=== PATIENT | male | born 1960 | race Caucasian/White ===

== ENCOUNTER 2020-02-14 07:12 | Outpatient (REF) | payer OTHER, SELFPAY ==
[2020-02-14 11:30] LABS: MANUAL DIFF FLAG NO
[2020-02-14 11:40] LABS: Estimated Average Glucose 120 mg/dL; Hemoglobin A1C 151.6024 umol/L; Hemoglobin A1c % 5.8 %
[2020-02-14 11:41] LABS: Basophils Percent Auto 0.4 % (0-2); Eosinophils Absolute Auto 0.2 X10*3/uL (0.0-0.4); Eosinophils Percent Auto 3.4 % (0-4); Hematocrit 42.9 % (42-52); Hemoglobin 14.7 g/dl (14.0-18.0); Imm Gran Abs Auto 0.02 X10*3/uL (0.00-0.03); Imm Gran Pct Auto 0.4 % (0.0-0.4); Lymphocytes Absolute Auto 2.2 X10*3/uL (1.2-4.9); Lymphocytes Percent Auto 38.2 % (20-40); Mean Corpuscular HGB Conc 34.3 g/dl (31.0-36.0); Mean Corpuscular Hemoglobin 30.6 pg (27.0-33.0); Mean Corpuscular Volume 89.2 fL (80-98); Mean Platelet Volume 11.6 fL (9.4-12.4); Monocytes Absolute Auto 0.4 X10*3/uL (0.1-1.2); Monocytes Percent Auto 6.4 % (2-11); Neutrophils Absolute Auto 2.9 X10*3/uL (2.0-8.3); Neutrophils Percent Auto 51.2 % (45-73); Platelet Count 179 X10*3/uL (160-400); Red Blood Count 4.81 X10*6/uL (4.60-5.80); Red Cell Distribution Width 12.4 % (11.0-16.0); White Blood Count 5.7 X10*3/uL (4.8-10.8)
[2020-02-14 12:00] LABS: Alanine Aminotransferase 31 U/L (0-40); Albumin Level 4.1 g/dL (3.5-5.0); Alkaline Phosphatase 85 U/L (39-117); Anion Gap 12 (12-20); Aspartate Amino Transferase 16 U/L (5-37); Bilirubin Total 0.7 mg/dL (0.0-1.0); Blood Urea Nitrogen 14 mg/dL (9-16); Calcium 8.8 mg/dL (8.4-10.2); Carbon Dioxide 29 mmol/L (22-29); Chloride 104 mmol/L (96-108); Cholesterol 175 mg/dL; Estimated Glomerular Filt Rate > 60; Glucose Fasting 128 mg/dL (60-99); HDL Cholesterol 46 mg/dL; LDL Cholesterol Calculated 118 mg/dl; Potassium 4.2 mmol/l (3.3-5.1); Sodium 141 mmol/L (135-145); Total Protein 6.5 g/dL (6.5-8.0); Triglycerides 58 mg/dL
[2020-02-14 12:26] LABS: Prostate Specific Antigen Scr 4.02 ng/mL (<0.05-4.0)
== END 2020-02-14 07:13 | disposition home or self-care (01) ==
LOC: HO.HMGCLDS 07:12
PROVIDERS: PCP Internal Medicine; Visit Provider Internal Medicine
DX: E78.5 Hyperlipidemia, unspecified (principal); E11.9 Type 2 diabetes mellitus without complications
CPT/HCPCS: 36415; 80053; 80061; 83036; 84153; 85025

== ENCOUNTER → 2020-04-14 14:27 | Outpatient (BNVA) | payer OTHER, SELFPAY | PROVIDERS: PCP Internal Medicine; Visit Provider Urology | DX: Z76.89 Persons encountering health services in other specified circumstances (principal) ==

== ENCOUNTER 2020-05-04 15:32 | Outpatient (REF) | payer OTHER, SELFPAY ==
[2020-05-04 18:20] LABS: PSA,Total (Free>4and<10) 5.04 ng/mL (0.00-4.00)
[2020-05-06 11:27] LABS: Free Prostate Spec Ag 0.4 ng/mL; Percent Free Prostate Spec Ag 9 % (calc) (>25); Prostate Specific Ag Total 4.3 ng/mL (< OR = 4.0)
== END 2020-05-04 15:33 | disposition home or self-care (01) ==
LOC: HO.LAB 15:32
PROVIDERS: PCP Internal Medicine; Visit Provider Urology
DX: N40.1 Benign prostatic hyperplasia with lower urinary tract symptoms (principal); N13.8 Other obstructive and reflux uropathy; R97.20 Elevated prostate specific antigen [PSA]; Z80.42 Family history of malignant neoplasm of prostate; Z12.5 Encounter for screening for malignant neoplasm of prostate
CPT/HCPCS: 36415; 84153; 84154

== ENCOUNTER → 2020-05-06 11:08 | Outpatient (BNVA) | payer OTHER, SELFPAY | PROVIDERS: PCP Internal Medicine; Visit Provider Urology | DX: Z76.89 Persons encountering health services in other specified circumstances (principal) ==

== ENCOUNTER 2020-09-04 07:14 | Outpatient (REF) | payer OTHER, SELFPAY ==
[2020-09-04 11:42] LABS: Estimated Average Glucose 120 mg/dL; Hemoglobin A1c % 5.8 %
[2020-09-04 11:49] LABS: Cholesterol 186 mg/dL; HDL Cholesterol 48 mg/dL; LDL Cholesterol Calculated 127 mg/dl; Triglycerides 58 mg/dL
== END 2020-09-04 07:15 | disposition home or self-care (01) ==
LOC: HO.HMGCLDS 07:14
PROVIDERS: PCP Internal Medicine; Visit Provider Internal Medicine
DX: E11.9 Type 2 diabetes mellitus without complications (principal); E78.5 Hyperlipidemia, unspecified
CPT/HCPCS: 36415; 80061; 83036

== ENCOUNTER → 2020-10-29 16:12 | Outpatient (BNVA) | payer OTHER, SELFPAY | PROVIDERS: PCP Internal Medicine; Visit Provider Urology ==

== ENCOUNTER 2020-12-01 07:30 | Outpatient (REF) | payer OTHER, SELFPAY ==
[2020-12-01 07:44] VITALS: BP 143/85; PULSE 71; RESP 16; TEMP 36.3; O2SAT 99
[2020-12-01 07:48] VITALS: BMI 31.5
--- NOTE | 2020-12-01 08:33 | W.PM.OPN ---
Operative Note Operative Note Date of Service: 12/01/20 Narrative: Preoperative diagnosis: Elevated PSA Postoperative diagnosis: Elevated PSA Procedure: 1. transrectal ultrasound measurement of prostate 2. transrectal ultrasound-guided pudendal nerve block 3. transrectal ultrasound-guided prostate biopsy 12 core Surgeon: Dr. Dawood Rashid Anesthetic: Local Indications for procedure: Elevated PSA 5.0 free 9% Procedure: After informed consent was verified, the patient was brought into the procedure area and lay left-hand side down on the table. Patient identity confirmed. Perioperative antibiotics confirmed. Gel was placed per rectum Ultrasound probe was placed per rectum The prostate was measured in 3 dimensions Total volume equals 35 gm There were no cystic structures and no calcifications noted. slight area of hypoechoic 1cm at left base A ultrasound-guided pudendal nerve block was performed using 10 cc of 1% lidocaine. 8 cc was placed at the base and 2 cc of the apex. A 12 core biopsy was performed with 6 cores each side. Two cores were taken at the apex, mid and base. Cores were spaced between lateral and medial. He tolerated the procedure well. Was able to ambulate to bathroom after 5 minutes. Printed instructions regarding antibiotic use and common side effects such as low-grade temperature and bleeding were given.
[2020-12-01 08:35] VITALS: BP 133/88; PULSE 70; RESP 16; O2SAT 97
== END 2020-12-01 07:31 | disposition home or self-care (01) ==
LOC: HO.MS 07:30
PROVIDERS: PCP Internal Medicine; Visit Provider Urology
PROC: (CPT 55700; principal; 2020-12-01 08:00)
DX: C61 Malignant neoplasm of prostate (principal); R97.20 Elevated prostate specific antigen [PSA]; Z80.42 Family history of malignant neoplasm of prostate
CPT/HCPCS: 55700; 76942; 88305

== ENCOUNTER → 2020-12-09 14:46 | Outpatient (BNVA) | payer OTHER, SELFPAY | PROVIDERS: PCP Internal Medicine; Visit Provider Urology ==

== ENCOUNTER → 2021-01-13 10:50 | Outpatient (REF) | payer OTHER, SELFPAY ==
--- NOTE | ~2021-01-13 | NM_ITS ---
EXAMINATION: NM BONE SCAN OF THE WHOLE BODY CLINICAL INFORMATION: Malignant neoplasm of prostate. COMPARISON: None. TECHNIQUE: Multiple gamma scintillation camera images of the whole body were performed 2.5 hours following the intravenous administration of 34 mCi Tc-99m MDP. FINDINGS: In the head, no abnormal activity seen. In the thoracic cage and upper extremities, there is mild focal activity seen in bilateral sternoclavicular joints. Otherwise, no abnormal activity seen in the thoracic cage or upper extremities. In the spine, there is punctate activity at the right T8 costovertebral junction, likely degenerative changes. Otherwise, no abnormal metabolic activity seen on whole body. In the pelvis, no abnormal activity seen. In the lower extremities, there is mild increased activity seen in the tarsometatarsal joints of both feet, likely arthritic changes. Also visualized is mild increased activity in the medial compartments of both knees and the patella. No other definite bony abnormalities are noted. The urinary bladder and faint visualization of both kidneys are noted. NM/NM bone scan whole body IMPRESSION: No abnormal activity seen to suspect any metastatic disease. Mild arthritic changes bilateral sternoclavicular joints, right 8th costovertebral junction and bilateral midfoot.
== END ==
LOC: HO.NUCMED 10:50
PROVIDERS: PCP Internal Medicine; Visit Provider Urology
DX: C61 Malignant neoplasm of prostate (principal)
CPT/HCPCS: 78306; A9503

== ENCOUNTER → 2021-01-26 14:57 | Outpatient (BNVA) | payer OTHER, SELFPAY | PROVIDERS: PCP Internal Medicine; Visit Provider Urology ==

== ENCOUNTER 2021-02-24 07:22 | Outpatient (REF) | payer OTHER, SELFPAY ==
[2021-02-24 11:27] LABS: MANUAL DIFF FLAG NO
[2021-02-24 11:40] LABS: Basophils Percent Auto 0.4 % (0-2); Eosinophils Absolute Auto 0.1 X10*3/uL (0.0-0.4); Eosinophils Percent Auto 2.8 % (0-4); Hematocrit 43.7 % (42.0-52.0); Imm Gran Abs Auto 0.01 X10*3/uL (0.00-0.03); Imm Gran Pct Auto 0.2 % (0.0-0.4); Lymphocytes Absolute Auto 1.6 X10*3/uL (1.2-4.9); Lymphocytes Percent Auto 30.5 % (20-40); Mean Corpuscular HGB Conc 34.3 g/dl (31.0-36.0); Mean Corpuscular Hemoglobin 30.9 pg (27.0-33.0); Mean Corpuscular Volume 89.9 fL (80.0-98.0); Mean Platelet Volume 12.1 fL (9.4-12.4); Monocytes Absolute Auto 0.3 X10*3/uL (0.1-1.2); Monocytes Percent Auto 6.5 % (2-11); Neutrophils Absolute Auto 3.03 x10*3/uL (2.0-8.3); Neutrophils Percent Auto 59.6 % (45-73); Platelet Count 175 X10*3/uL (160-400); Red Blood Count 4.86 X10*6/uL (4.60-5.80); Red Cell Distribution Width 12.4 % (11.0-16.0); White Blood Count 5.1 X10*3/uL (4.8-10.8)
[2021-02-24 12:20] LABS: Alanine Aminotransferase 29 U/L (0-40); Albumin Level 4.2 g/dL (3.5-5.0); Alkaline Phosphatase 98 U/L (39-117); Anion Gap 9 (12-20); Aspartate Amino Transferase 18 U/L (5-37); Bilirubin Total 0.7 mg/dL (0.0-1.0); Blood Urea Nitrogen 16 mg/dL (9-16); Calcium 9.3 mg/dL (8.4-10.2); Carbon Dioxide 29 mmol/L (22-29); Chloride 105 mmol/L (96-108); Cholesterol 134 mg/dL; Estimated Glomerular Filt Rate > 60; Glucose Fasting 148 mg/dL (60-99); HDL Cholesterol 48 mg/dL; LDL Cholesterol Calculated 79 mg/dl; Potassium 4.3 mmol/L (3.3-5.1); Sodium 139 mmol/L (135-145); Total Protein 6.3 g/dL (6.5-8.0); Triglycerides 36 mg/dL
[2021-02-25 13:06] LABS: Estimated Average Glucose 117 mg/dL; Hemoglobin A1c % 5.7 %
== END 2021-02-24 07:23 | disposition home or self-care (01) ==
LOC: HO.HMGCLDS 07:22
PROVIDERS: PCP Internal Medicine; Visit Provider Internal Medicine
DX: E11.9 Type 2 diabetes mellitus without complications (principal); R53.83 Other fatigue; E78.5 Hyperlipidemia, unspecified
CPT/HCPCS: 36415; 80053; 80061; 83036; 85025

== ENCOUNTER → 2021-03-10 14:31 | Outpatient (BNVA) | payer OTHER, SELFPAY | PROVIDERS: Visit Provider Urology | DX: C61 Malignant neoplasm of prostate (principal) | CPT/HCPCS: 96402; J9217 ==

== ENCOUNTER 2021-04-06 11:33 | Outpatient (REF) | payer OTHER, SELFPAY ==
[2021-04-06 11:50] VITALS: BP 144/95; PULSE 73; RESP 16; TEMP 36.6; O2SAT 100
[2021-04-06 11:51] VITALS: BMI 29.2
--- NOTE | 2021-04-06 12:22 | W.PM.OPN ---
Operative Note Operative Note Date of Service: 04/06/21 Narrative: Preoperative diagnosis: Prostate cancer Postoperative diagnosis: Prostate cancer Procedure: 1. Transrectal ultrasound-guided pudendal nerve block 2. Transrectal ultrasound-guided gold seed placement Surgeon: Dr. Dawood Rashid Anesthetic: Local Indications for procedure: Prostate Cancer Procedure: After informed consent was verified, the patient was brought into the procedure area and lay left-hand side down on the table. Patient identity confirmed. Perioperative antibiotics confirmed. Gel was placed per rectum Ultrasound probe was placed per rectum A ultrasound-guided pudendal nerve block was performed using 10 cc of 1% lidocaine. 8 cc was placed at the base and 2 cc of the apex. 3 gold seed markers placed. 2 on the right, 1 on the left. The purpose is for triangulation. He tolerated the procedure well. Was able to ambulate to bathroom after 5 minutes. Printed instructions regarding antibiotic use and common side effects such as low-grade temperature and bleeding were given
== END 2021-04-06 11:34 | disposition home or self-care (01) ==
LOC: HO.MS 11:33
PROVIDERS: PCP Internal Medicine; Visit Provider Urology
PROC: (CPT 55876; principal; 2021-04-06 12:00)
DX: C61 Malignant neoplasm of prostate (principal)
CPT/HCPCS: 55876; 76942; A4648

== ENCOUNTER 2021-07-13 15:37 | Outpatient (AMB) | payer OTHER, SELFPAY ==
--- NOTE | 2021-07-13 15:40 | MHC.OFFVIS ---
Intake Intake Visit Reasons: 3 Month follow up (Gold seed) Intake Note: patient is present for follow up Roll Reclaimer Required: No Accompanied by: Self / Same As Patient Allergies No Known Allergies Allergy (Verified 06/28/23 12:51) HPI HPI Comments History of Present Illness Details Jason is a pleasant male. He is a patient of Dr. Salazar. Seen for the following urologic condition - elevated PSA - family history prostate cancer Done well through radiation therapy Had urgency and frequency both urinary and erectile This is now on settling down having completed his radiation newly this month Very happy with okay service through [facility] Three month follow-up lab work Prostate cancer - intermediate risk with single core unfavorable, predominant biopsies [place] 3 + 24 November 2020 - initial therapy 6 month GnRH with IMRT 7 100 Gy [facility] Dr. Prieto 07/13 Prior PSA 4.0, 05/14 5.0 Histologic type:? Prostatic acinar adenocarcinoma Histologic grade: ? Esther score:? 3 + 3 = 6 (Parts A, B, C, F, G, H, and I), 3 + 4 = 7 (Part D), and 4 + 3 = 7 (Part E) ? % of pattern 4:? 20% (Part D); 60% (Part E) Tumor quantitation: ? Number cores positive:? 9, Total number of cores:? 12 ? % of tissue involved:? 50% (Parts A and B), 20% (Part C), 10% (Part D), 60% (Part E), 5% (Part F), 70% (Part G), 40% (Part H), 60%, discontinuously (Part I) - Total - 365/1200 Periprostatic fat inv.:? Not identified, Seminal vesicle inv.:? Not identified, Perineural inv.:? Present, LVI:? Not identified? Staging - 01/12 bone scan [facility], arthritis - 01/12 prostate MRI [facility] calculated volume 20 cc, no extension through the prostate capsule, signal changes bilateral mid to basal aspect of prostate. [facility] Medical History Prostate cancer Family history of prostate cancer Elevated PSA Review of Systems Const Denies chills and Denies fever(s) Card Reports no additional complaints and Denies syncope Resp Denies cough GI Denies abdominal pain and Denies heartburn Reports as per HPI and Denies change in libido Neuro Denies syncope Psych Denies change in libido Endo Denies change in libido Physical Exam Const General: cooperative, healthy appearing, comfortable and no acute distress Orientation/consciousness: patient oriented x3 HEENT Face and sinus: Yes normal facial exam Mouth: moist mucous membranes Neck Neck: Yes normal visual inspection, Yes full ROM and Yes trachea midline Chest Chest palpation & inspection: normal inspection of the chest Resp Effort & Inspection: normal respiratory effort, able to speak in complete sentences and no respiratory distress GI Inspection: Yes normal to inspection Back/Spine/Pelvis Cervical Spine: normal cervical lordosis Thoracic/Lumbar Spine: thoracic and lumbar spine normal to inspection Skin General skin exam: no rashes or lesions noted Neuro General: patient oriented x3, gait normal, tone normal and moves all extremities Extrem General: Yes normal to inspection and Yes capillary refill normal Assessment & Plan Assessment & Plan (1) Prostate cancer: Comment: Grade group 2 01/12 EXBRT with 6m GnRH 07/13 Code(s): C61 - Malignant neoplasm of prostate Plan Three-month follow-up Orders: Orders Testosterone, Total 3 Months C61 - Malignant neoplasm of prostate Prostate Specific Antigen 3 Months C61 - Malignant neoplasm of prostate Patient Instructions: Imaging studies, laboratory and physical exam results were discussed and reviewed in detail. No major barriers to patient understanding were identified. An opportunity to ask questions regarding the treatment plan was provided. All questions were answered. The patient expressed understanding and agreement with the above treatment plan. The patient is aware they should contact our office by phone for worsening of their current condition or the appearance of new urologic symptoms. Compliance is encouraged with any medications and followup testing that is ordered. It is a privilege to participate in the urologic care of your patient. If you have any questions or concerns regarding treatment for the above conditions, or other urologic issues, please do not hesitate to contact me. The office telephone contact is [phone]. This note is constructed using voice recognition software. While every effort has been made to ensure accuracy digital content coordinator errors may have been included. Yours sincerely, Dr Dawood Rashid MD, [facility] - Urology Providers of Expert, Compassionate Care for the Genitourinary System Coding Level of Care Code Est Pt Level 3 (00803) Diagnoses Prostate cancer C61
== END 2021-07-13 16:05 | disposition home or self-care (01) ==
LOC: HO.HUSH 15:37
PROVIDERS: PCP Internal Medicine; Visit Provider Urology
DX: C61 Malignant neoplasm of prostate (principal)
CPT/HCPCS: 99499

== ENCOUNTER → 2021-07-13 15:37 | Outpatient (BNVA) | payer OTHER, SELFPAY | PROVIDERS: PCP Internal Medicine; Visit Provider Urology | DX: C61 Malignant neoplasm of prostate (principal) | CPT/HCPCS: 99212 ==

== ENCOUNTER 2021-10-15 07:08 | Outpatient (REF) | payer OTHER, SELFPAY ==
[2021-10-15 12:03] LABS: Prostate Specific Antigen 0.06 ng/mL (<0.05-4.0)
[2021-10-20 12:07] LABS: Testosterone, Total 121 ng/dL (250-1100)
== END 2021-10-15 07:09 | disposition home or self-care (01) ==
LOC: HO.HMGCLDS 07:08
PROVIDERS: Visit Provider Urology
DX: Z12.5 Encounter for screening for malignant neoplasm of prostate (principal); C61 Malignant neoplasm of prostate
CPT/HCPCS: 36415; 84153; 84403

== ENCOUNTER 2021-10-22 15:39 | Outpatient (AMB) | payer OTHER, SELFPAY ==
--- NOTE | 2021-10-22 15:37 | A.OFFVIS_ITS ---
Intake Intake Visit Reasons: 3 month follow up labs (SET) Intake Note: Patient is present for labs follow up [employer] Required: No Accompanied by: Self / Same As Patient Allergies No Known Allergies Allergy (Verified 03/01/23 12:42) HPI HPI Comments History of Present Illness Details Jason is a pleasant male. He is a patient of Dr. Salazar. Seen for the following urologic condition - elevated PSA - family history prostate cancer Follow-up Testosterone is slowly recovering PSA is low PSA 10/13 <0.1 T 121 Prostate cancer - intermediate risk with single core unfavorable, predominant biopsies Esther 3 + 24 November 2020 - initial therapy 6 month GnRH with IMRT 7 100 Gy [facility] Dr. Prieto 07/13 Prior PSA 4.0, 05/14 5.0 Histologic type:? Prostatic acinar adenocarcinoma Histologic grade: ? [place] score:? 3 + 3 = 6 (Parts A, B, C, F, G, H, and I), 3 + 4 = 7 (Part D), and 4 + 3 = 7 (Part E) ? % of pattern 4:? 20% (Part D); 60% (Part E) Tumor quantitation: ? Number cores positive:? 9, Total number of cores:? 12 ? % of tissue involved:? 50% (Parts A and B), 20% (Part C), 10% (Part D), 60% (Part E), 5% (Part F), 70% (Part G), 40% (Part H), 60%, discontinuously (Part I) - Total - 365/1200 Periprostatic fat inv.:? Not identified, Seminal vesicle inv.:? Not identified, Perineural inv.:? Present, LVI:? Not identified? Staging - 01/12 bone scan [facility], arthritis - 01/12 prostate MRI [facility] calculated volume 20 cc, no extension through the prostate capsule, signal changes bilateral mid to basal aspect of prostate. [facility] Medical History Prostate cancer Family history of prostate cancer Elevated PSA Review of Systems Const Denies chills and Denies fever(s) Card Reports no additional complaints and Denies syncope Resp Denies cough GI Denies abdominal pain and Denies heartburn Reports as per HPI and Denies change in libido Neuro Denies syncope Psych Denies change in libido Endo Denies change in libido Physical Exam Const General: cooperative, healthy appearing, comfortable and no acute distress Orientation/consciousness: patient oriented x3 HEENT Face and sinus: Yes normal facial exam Mouth: moist mucous membranes Neck Neck: Yes normal visual inspection, Yes full ROM and Yes trachea midline Chest Chest palpation & inspection: normal inspection of the chest Resp Effort & Inspection: normal respiratory effort, able to speak in complete sentences and no respiratory distress GI Inspection: Yes normal to inspection Back/Spine/Pelvis Cervical Spine: normal cervical lordosis Thoracic/Lumbar Spine: thoracic and lumbar spine normal to inspection Skin General skin exam: no rashes or lesions noted Neuro General: patient oriented x3, gait normal, tone normal and moves all extremities Extrem General: Yes normal to inspection and Yes capillary refill normal Assessment & Plan Assessment & Plan (1) Prostate cancer: Comment: Grade group 2 01/12 EXBRT with 6m GnRH 07/13 Code(s): C61 - Malignant neoplasm of prostate Plan 4m f/u Orders: Orders Prostate Specific Antigen 4 Months C61 - Malignant neoplasm of prostate Testosterone, Total 4 Months C61 - Malignant neoplasm of prostate Patient Instructions: Imaging studies, laboratory and physical exam results were discussed and reviewed in detail. No major barriers to patient understanding were identified. An opportunity to ask questions regarding the treatment plan was provided. All questions were answered. The patient expressed understanding and agreement with the above treatment plan. The patient is aware they should contact our office by phone for worsening of their current condition or the appearance of new urologic symptoms. Compliance is encouraged with any medications and followup testing that is ordered. It is a privilege to participate in the urologic care of your patient. If you have any questions or concerns regarding treatment for the above conditions, or other urologic issues, please do not hesitate to contact me. The office telephone contact is [phone]. This note is constructed using voice recognition software. While every effort has been made to ensure accuracy senior brand manager errors may have been included. Yours sincerely, Dr Dawood Rashid MD, [facility] - Urology Providers of Expert, Compassionate Care for the Genitourinary System Coding Level of Care Code Est Pt Level 3 (95976) Diagnoses Prostate cancer C61
== END 2021-10-22 16:09 | disposition home or self-care (01) ==
LOC: HO.HUSH 15:39
PROVIDERS: PCP Internal Medicine; Visit Provider Urology
DX: C61 Malignant neoplasm of prostate (principal)
CPT/HCPCS: 99499

== ENCOUNTER 2022-02-16 07:45 | Outpatient (REF) | payer OTHER, SELFPAY ==
[2022-02-16 11:27] LABS: MANUAL DIFF FLAG NO
[2022-02-16 12:04] LABS: Prostate Specific Antigen 0.08 ng/mL (<0.05-4.0)
[2022-02-16 12:05] LABS: Basophils Percent Auto 0.2 % (0-2); Eosinophils Absolute Auto 0.1 X10*3/uL (0.0-0.4); Eosinophils Percent Auto 1.4 % (0-4); Hematocrit 41.9 % (42.0-52.0); Hemoglobin 14.7 g/dl (14.0-18.0); Imm Gran Abs Auto 0.01 X10*3/uL (0.00-0.03); Imm Gran Pct Auto 0.2 % (0.0-0.4); Lymphocytes Percent Auto 23.9 % (20-40); Mean Corpuscular HGB Conc 35.1 g/dl (31.0-36.0); Mean Corpuscular Hemoglobin 31.7 pg (27.0-33.0); Mean Corpuscular Volume 90.3 fL (80.0-98.0); Mean Platelet Volume 11.4 fL (9.4-12.4); Monocytes Absolute Auto 0.3 X10*3/uL (0.1-1.2); Monocytes Percent Auto 6.4 % (2-11); Neutrophils Percent Auto 67.9 % (45-73); Platelet Count 178 X10*3/uL (160-400); Red Blood Count 4.64 X10*6/uL (4.60-5.80); Red Cell Distribution Width 12.3 % (11.0-16.0); White Blood Count 4.4 X10*3/uL (4.8-10.8)
[2022-02-16 12:07] LABS: Alanine Aminotransferase 23 U/L (0-40); Albumin Level 4.1 g/dL (3.5-5.0); Alkaline Phosphatase 91 U/L (39-117); Anion Gap 12 (12-20); Aspartate Amino Transferase 17 U/L (5-37); Bilirubin Direct 0.3 mg/dL (0.0-0.5); Bilirubin Total 0.6 mg/dL (0.0-1.0); Blood Urea Nitrogen 12 mg/dL (9-16); Carbon Dioxide 27 mmol/L (22-29); Chloride 104 mmol/L (96-108); Cholesterol 130 mg/dL; Estimated Glomerular Filt Rate > 60; Glucose Fasting 141 mg/dL (60-99); HDL Cholesterol 47 mg/dL; LDL Cholesterol Calculated 76 mg/dl; Potassium 4.4 mmol/L (3.3-5.1); Sodium 139 mmol/L (135-145); Total Protein 6.3 g/dL (6.5-8.0); Triglycerides 37 mg/dL
[2022-02-21 11:27] LABS: Testosterone, Total 360 ng/dL (250-1100)
== END 2022-02-16 07:46 | disposition home or self-care (01) ==
LOC: HO.HMGCLDS 07:45
PROVIDERS: Absent Provider Urology; PCP Internal Medicine; Visit Provider Internal Medicine
DX: Z00.00 Encounter for general adult medical examination without abnormal findings (principal); Z12.5 Encounter for screening for malignant neoplasm of prostate; C61 Malignant neoplasm of prostate; R53.83 Other fatigue; E78.5 Hyperlipidemia, unspecified
CPT/HCPCS: 36415; 80051; 80061; 80076; 82565; 82947; 84153; 84403; 84520; 85025

== ENCOUNTER 2022-06-15 07:47 | Outpatient (REF) | payer OTHER, SELFPAY ==
[2022-06-15 12:13] LABS: Prostate Specific Antigen < 0.10 ng/mL (<0.05-4.0)
[2022-06-21 13:32] LABS: Testosterone, Total 359 ng/dL (250-1100)
== END 2022-06-15 07:48 | disposition home or self-care (01) ==
LOC: HO.HMGCLDS 07:47
PROVIDERS: PCP Internal Medicine; Visit Provider Urology
DX: Z12.5 Encounter for screening for malignant neoplasm of prostate (principal); C61 Malignant neoplasm of prostate
CPT/HCPCS: 36415; 84153; 84403

== ENCOUNTER → 2022-06-30 13:22 | Outpatient (BNVA) | payer OTHER, SELFPAY | PROVIDERS: PCP Internal Medicine; Visit Provider Urology | DX: Z13.89 Encounter for screening for other disorder (principal) ==

== ENCOUNTER 2022-09-07 09:53 | Outpatient (REF) | payer OTHER, SELFPAY ==
[2022-09-07 12:17] LABS: Estimated Average Glucose 111 mg/dL; Hemoglobin A1C 150.5976 umol/L; Hemoglobin A1c % 5.5 %
== END 2022-09-07 09:54 | disposition home or self-care (01) ==
LOC: HO.HMGCLDS 09:53
PROVIDERS: PCP Internal Medicine; Visit Provider Internal Medicine
DX: E11.9 Type 2 diabetes mellitus without complications (principal); R53.83 Other fatigue
CPT/HCPCS: 36415; 83036

== ENCOUNTER 2022-10-27 06:43 | Outpatient (REF) | payer OTHER, SELFPAY | END 2022-10-27 06:44 | disposition home or self-care (01) | LOC: HO.HMGCLDS 06:43 | PROVIDERS: PCP Internal Medicine; Visit Provider Urology | DX: C61 Malignant neoplasm of prostate (principal); Z12.5 Encounter for screening for malignant neoplasm of prostate | CPT/HCPCS: 36415; 84153 ==

== ENCOUNTER 2022-11-02 13:35 | Outpatient (AMB) | payer OTHER, SELFPAY ==
--- NOTE | 2022-11-02 13:35 | MHC.OFFVIS ---
Intake Intake Visit Reasons: 4m/PSA(set) Humidifier Attendant Required: No Allergies No Known Allergies Allergy (Verified 11/02/22 13:36) Medication List - Last Reconciled 11/02/22 by Dawood Rashid MD atorvastatin 10 mg PO DAILY lorazepam 1 mg PO TID PRN HPI HPI Comments History of Present Illness Details Jason is a pleasant male. He is a patient of Dr. Salazar. Seen for the following urologic condition - elevated PSA - family history prostate cancer Telemedicine evaluation 15 minute consultation Doximity mini Video attempted PSA remains low Four month follow-up lab work Nocturia x2 PSA 10/13 <0.1 T 121, 02/12 0.08 360, 06/16 <0.1 T 360, 11/13 <0.1 Prostate cancer - intermediate risk with single core unfavorable, predominant biopsies Esther 3 + 24 November 2020 - initial therapy 6 month GnRH with IMRT [address] [facility] [address] Prieto 07/13 Prior PSA 4.0, 05/14 5.0 Histologic type:? Prostatic acinar adenocarcinoma Histologic grade: ? Esther score:? 3 + 3 = 6 (Parts A, B, C, F, G, H, and I), 3 + 4 = 7 (Part D), and 4 + 3 = 7 (Part E) ? % of pattern 4:? 20% (Part D); 60% (Part E) Tumor quantitation: ? Number cores positive:? 9, Total number of cores:? 12 ? % of tissue involved:? 50% (Parts A and B), 20% (Part C), 10% (Part D), 60% (Part E), 5% (Part F), 70% (Part G), 40% (Part H), 60%, discontinuously (Part I) - Total - 365/1200 Periprostatic fat inv.:?Not identified, Seminal vesicle inv.:? Not identified, Perineural inv.:? Present, LVI:? Not identified? Staging - 01/12 bone scan [facility], arthritis - 01/12 prostate MRI [facility] calculated volume 20 cc, no extension through the prostate capsule, signal changes bilateral mid to basal aspect of prostate. [facility] Medical History Elevated PSA Family history of prostate cancer Prostate cancer Review of Systems Const All systems reviewed & are unremarkable except as noted in HPI and below Reports no additional complaints Resp Reports no additional complaints GI Reports no additional complaints Reports as per HPI Musc Reports no additional complaints Physical Exam Telemedicine evaluation Appropriate responses Regular breathing rate and rhythm HEENT Head: Yes normal to inspection Ears: hearing grossly normal bilaterally Eyes General: appearance normal, both eyes and all related structures Neck Neck: Yes normal visual inspection Chest Chest palpation & inspection: normal inspection of the chest Resp Effort & Inspection: normal respiratory effort and able to speak in complete sentences Assessment & Plan Assessment & Plan (1) Prostate cancer: Comment: Grade group 2 01/12 EXBRT with 6m GnRH 07/13 Code(s): C61 - Malignant neoplasm of prostate Plan Four month follow-up PSA Orders: Orders Prostate Specific Antigen 4 Months C61 - Malignant neoplasm of prostate Patient Instructions: Imaging studies, laboratory and physical exam results were discussed and reviewed in detail. No major barriers to patient understanding were identified. An opportunity to ask questions regarding the treatment plan was provided. All questions were answered. The patient expressed understanding and agreement with the above treatment plan. The patient is aware they should contact our office by phone for worsening of their current condition or the appearance of new urologic symptoms. Compliance is encouraged with any medications and followup testing that is ordered. It is a privilege to participate in the urologic care of your patient. If you have any questions or concerns regarding treatment for the above conditions, or other urologic issues, please do not hesitate to contact me. The office telephone contact is [phone]. This note is constructed using voice recognition software. While every effort has been made to ensure accuracy community service technician errors may have been included. Yours sincerely, Dr Dawood Rashid MD, [facility] - Urology Providers of Expert, Compassionate Care for the Genitourinary System Telehealth Telehealth Location of provider rendering services: practice address Location of patient: address on file Patient Identification confirmed using: Name, : Yes Telehealth method: video Patient verbally consented to treatment: Yes Patient verbally consented to billing insurance company: Yes Patient informed of any privacy concerns related to visit: Yes Coding Level of Care Code Tele Est Pt Level 3 (96578) Diagnoses Prostate cancer C61
== END 2022-11-02 16:44 ==
LOC: HO.HUSH 13:35
PROVIDERS: PCP Internal Medicine; Visit Provider Urology
DX: C61 Malignant neoplasm of prostate (principal); R35.1 Nocturia
CPT/HCPCS: 99213

== ENCOUNTER → 2022-11-02 13:35 | Outpatient (BNVA) | payer OTHER, SELFPAY | PROVIDERS: PCP Internal Medicine; Visit Provider Urology ==

== ENCOUNTER 2023-02-24 06:39 | Outpatient (REF) | payer OTHER, SELFPAY | END 2023-02-24 06:40 | disposition home or self-care (01) | LOC: HO.HMGCLDS 06:39 | PROVIDERS: PCP Internal Medicine; Visit Provider Urology | DX: Z12.5 Encounter for screening for malignant neoplasm of prostate (principal); C61 Malignant neoplasm of prostate | CPT/HCPCS: 36415; 84153 ==

== ENCOUNTER 2023-03-01 12:41 | Outpatient (AMB) | payer OTHER, SELFPAY ==
--- NOTE | 2023-03-01 12:41 | A.OFFVIS_ITS ---
Intake Intake Visit Reasons: 4m/PSA(set) Intake Note: Patient is Present for Telephone Follow Up Urology Med: None Antibiotic Allergy: None Blood Thinner: None Allergies No Known Allergies Allergy (Verified 03/01/23 12:42) Medication List - Last Reconciled 03/01/23 by Dawood Rashid MD atorvastatin 10 mg PO DAILY lorazepam 1 mg PO TID PRN HPI HPI Comments History of Present Illness Details Jason is a pleasant male. He is a patient of Dr. Salazar. Seen for the following urologic condition - elevated PSA - family history prostate cancer Telemedicine evaluation 15 minute consultation [employer] mini Video attempted PSA remains low Minimal urgency or frequency Four month follow-up lab work Discussed [place] criteria for failure Nocturia x2 PSA 10/13 <0.1 T 121, 02/12 0.08 360, 06/16 <0.1 T 360, 11/13 <0.1, 03/16 0.1 Prostate cancer - intermediate risk with single core unfavorable, predominant biopsies Esther 3 + 24 November 2020 - initial therapy 6 month GnRH with IMRT 7 [address] [facility] [address] Prieto 07/13 Prior PSA 4.0, 05/14 5.0 Histologic type:? Prostatic acinar adenocarcinoma [place] score:? 3 + 3 = 6 (Parts A, B, C, F, G, H, and I), 3 + 4 = 7 (Part D), and 4 + 3 = 7 (Part E) - % of pattern 4:? 20% (Part D); 60% (Part E) Number cores positive:? 9, Total number of cores:? 12 % of tissue involved:? 50% (Parts A and B), 20% (Part C), 10% (Part D), 60% (Part E), 5% (Part F), 70% (Part G), 40% (Part H), 60%, discontinuously (Part I) - Total - 365/1200 Periprostatic fat inv.:?Not identified, Seminal vesicle inv.:? Not identified, Perineural inv.:? Present, LVI:? Not identified? Staging - 01/12 bone scan [facility], arthritis - 01/[address] [facility] calculated volume 20 cc, no extension through the prostate capsule, signal changes bilateral mid to basal aspect of prostate. [facility] Medical History Prostate cancer Family history of prostate cancer Elevated PSA Review of Systems Const All systems reviewed & are unremarkable except as noted in HPI and below Reports no additional complaints Resp Reports no additional complaints GI Reports no additional complaints Reports as per HPI Musc Reports no additional complaints Physical Exam Telemedicine evaluation Appropriate responses Regular breathing rate and rhythm HEENT Head: Yes normal to inspection Ears: hearing grossly normal bilaterally Eyes General: appearance normal, both eyes and all related structures Neck Neck: Yes normal visual inspection Chest Chest palpation & inspection: normal inspection of the chest Resp Effort & Inspection: normal respiratory effort and able to speak in complete sentences Assessment & Plan Assessment & Plan (1) Prostate cancer: Comment: Grade group 2 01/12 EXBRT with 6m GnRH 07/13 Code(s): C61 - Malignant neoplasm of prostate Plan Four month follow-up PSA Orders: Orders Prostate Specific Antigen 4 Months C61 - Malignant neoplasm of prostate Patient Instructions: Imaging studies, laboratory and physical exam results were discussed and reviewed in detail. No major barriers to patient understanding were identified. An opportunity to ask questions regarding the treatment plan was provided. All questions were answered. The patient expressed understanding and agreement with the above treatment plan. The patient is aware they should contact our office by phone for worsening of their current condition or the appearance of new urologic symptoms. Compliance is encouraged with any medications and followup testing that is ordered. It is a privilege to participate in the urologic care of your patient. If you have any questions or concerns regarding treatment for the above conditions, or other urologic issues, please do not hesitate to contact me. The office telephone contact is [phone]. This note is constructed using voice recognition software. While every effort has been made to ensure accuracy medical transcription editor errors may have been included. Yours sincerely, Dr Dawood Rashid MD, [facility] - Urology Providers of Expert, Compassionate Care for the Genitourinary System Telehealth Telehealth Location of provider rendering services: practice address Location of patient: address on file Patient Identification confirmed using: Name, : Yes Telehealth method: video Patient verbally consented to treatment: Yes Patient verbally consented to billing insurance company: Yes Patient informed of any privacy concerns related to visit: Yes Coding Level of Care Code Tele Est Pt Level 3 (22993) Diagnoses Prostate cancer C61
== END 2023-03-01 14:09 | disposition home or self-care (01) ==
LOC: HO.HUSH 12:41
PROVIDERS: PCP Internal Medicine; Visit Provider Urology
DX: C61 Malignant neoplasm of prostate (principal)
CPT/HCPCS: 99213

== ENCOUNTER → 2023-03-01 12:41 | Outpatient (BNVA) | payer OTHER, SELFPAY | PROVIDERS: PCP Internal Medicine; Visit Provider Urology ==

== ENCOUNTER 2023-03-10 06:27 | Outpatient (REF) | payer OTHER, SELFPAY ==
[2023-03-10 11:28] LABS: MANUAL DIFF FLAG NO
[2023-03-10 11:43] LABS: Basophils Percent Auto 0.5 % (0-2); Eosinophils Absolute Auto 0.3 X10*3/uL (0.0-0.4); Eosinophils Percent Auto 5.9 % (0-4); Hematocrit 42.5 % (42.0-52.0); Hemoglobin 14.7 g/dl (14.0-18.0); Imm Gran Abs Auto 0.01 X10*3/uL (0.00-0.03); Imm Gran Pct Auto 0.2 % (0.0-0.4); Lymphocytes Absolute Auto 1.4 X10*3/uL (1.2-4.9); Lymphocytes Percent Auto 33.5 % (20-40); Mean Corpuscular HGB Conc 34.6 g/dl (31.0-36.0); Mean Corpuscular Hemoglobin 32.1 pg (27.0-33.0); Mean Corpuscular Volume 92.8 fL (80.0-98.0); Mean Platelet Volume 11.1 fL (9.4-12.4); Monocytes Absolute Auto 0.3 X10*3/uL (0.1-1.2); Monocytes Percent Auto 7.6 % (2-11); Neutrophils Absolute Auto 2.2 x10*3/uL (2.0-8.3); Neutrophils Percent Auto 52.3 % (45-73); Platelet Count 182 X10*3/uL (160-400); Red Blood Count 4.58 X10*6/uL (4.60-5.80); Red Cell Distribution Width 12.9 % (11.0-16.0); White Blood Count 4.2 X10*3/uL (4.8-10.8)
[2023-03-10 12:12] LABS: Prostate Specific Antigen < 0.10 ng/mL (<0.05-4.0)
[2023-03-10 12:30] LABS: Alanine Aminotransferase 25 U/L (0-40); Albumin Level 3.9 g/dL (3.5-5.0); Alkaline Phosphatase 96 U/L (39-117); Anion Gap 7 (12-20); Aspartate Amino Transferase 20 U/L (5-37); Bilirubin Direct 0.2 mg/dL (0.0-0.5); Bilirubin Total 0.5 mg/dL (0.0-1.0); Blood Urea Nitrogen 10 mg/dL (9-16); Calcium 9.1 mg/dL (8.4-10.2); Carbon Dioxide 32 mmol/L (22-29); Chloride 107 mmol/L (96-108); Cholesterol 132 mg/dL (<200); Estimated Glomerular Filt Rate > 60; Glucose Fasting 127 mg/dL (60-99); HDL Cholesterol 48 mg/dL (>40); LDL Cholesterol Calculated 73 mg/dL (<100); Sodium 142 mmol/L (135-145); Total Protein 6.6 g/dL (6.5-8.0); Triglycerides 55 mg/dL (<150)
== END 2023-03-10 06:28 | disposition home or self-care (01) ==
LOC: HO.HMGCLDS 06:27
PROVIDERS: PCP Internal Medicine; Visit Provider Internal Medicine
DX: Z00.00 Encounter for general adult medical examination without abnormal findings (principal); R53.83 Other fatigue; E78.5 Hyperlipidemia, unspecified; Z12.5 Encounter for screening for malignant neoplasm of prostate
CPT/HCPCS: 36415; 80053; 80061; 80076; 82248; 84153; 85025

== ENCOUNTER 2023-06-20 06:07 | Outpatient (REF) | payer OTHER, SELFPAY | END 2023-06-20 06:08 | disposition home or self-care (01) | LOC: HO.HMGCLDS 06:07 | PROVIDERS: PCP Internal Medicine; Visit Provider Urology | DX: Z12.5 Encounter for screening for malignant neoplasm of prostate (principal); C61 Malignant neoplasm of prostate | CPT/HCPCS: 36415; 84153 ==

== ENCOUNTER 2023-06-28 12:48 | Outpatient (AMB) | payer OTHER, SELFPAY ==
--- NOTE | 2023-06-28 12:49 | A.OFFVIS_ITS ---
Intake Intake Visit Reasons: 4M PSA(pending)Confirmed Intake Note: Patient presents today for a telehealth follow-up Meds- None Allergies to Antibiotic- No Known Allergies Blood Thinner- None Fire Control System Installer Required: No Allergies No Known Allergies Allergy (Verified 06/28/23 12:51) Medication List - Last Reconciled 06/28/23 by Dawood Rashid MD atorvastatin 10 mg PO DAILY clonazepam 1 mg PO TID PRN lorazepam 1 mg PO TID PRN HPI HPI Comments History of Present Illness Details Jason is a pleasant male. He is a patient of Dr. Salazar. Seen for the following urologic condition - elevated PSA - family history prostate cancer Telemedicine evaluation 15 minute consultation Doximity mini Video attempted PSA remains low Minimal urgency or frequency Two years since completion of external beam radiation Moved to six-month interval surveillance Nocturia x2 PSA 10/13 <0.1 T 121, 02/12 0.08 360, 06/16 <0.1 T 360, 11/13 <0.1, 03/16 0.1, 06/17 0.1 T 360 Prostate cancer - intermediate risk with single core unfavorable, predominant biopsies [place] 3 + 24 November 2020 - initial therapy 6 month GnRH with IMRT 7 100 Gy [facility] [address]. Prieto 07/13 Prior PSA 4.0, 05/14 5.0 Histologic type:? Prostatic acinar adenocarcinoma [place] score:? 3 + 3 = 6 (Parts A, B, C, F, G, H, and I), 3 + 4 = 7 (Part D), and 4 + 3 = 7 (Part E) - % of pattern 4:? 20% (Part D); 60% (Part E) Number cores positive:? 9, Total number of cores:? 12 % of tissue involved:? 50% (Parts A and B), 20% (Part C), 10% (Part D), 60% (Part E), 5% (Part F), 70% (Part G), 40% (Part H), 60%, discontinuously (Part I) - Total - 365/1200 Periprostatic fat inv.:?Not identified, Seminal vesicle inv.:? Not identified, Perineural inv.:? Present, LVI:? Not identified? Staging - 01/12 bone scan [facility], arthritis - 01/12 prostate MRI [facility] calculated volume 20 cc, no extension through the prostate capsule, signal changes bilateral mid to basal aspect of prostate. [facility] Medical History Prostate cancer Family history of prostate cancer Elevated PSA Review of Systems Const All systems reviewed & are unremarkable except as noted in HPI and below Reports no additional complaints Resp Reports no additional complaints GI Reports no additional complaints Reports as per HPI Musc Reports no additional complaints Physical Exam Telemedicine evaluation Appropriate responses Regular breathing rate and rhythm HEENT Head: Yes normal to inspection Ears: hearing grossly normal bilaterally Eyes General: appearance normal, both eyes and all related structures Neck Neck: Yes normal visual inspection Chest Chest palpation & inspection: normal inspection of the chest Resp Effort & Inspection: normal respiratory effort and able to speak in complete sentences Assessment & Plan Assessment & Plan (1) Prostate cancer: Comment: Grade group 2 01/12 EXBRT with 6m GnRH 07/13 Code(s): C61 - Malignant neoplasm of prostate Plan Six-month follow-up PSA office Orders: Orders Prostate Specific Antigen 6 Months C61 - Malignant neoplasm of prostate Patient Instructions: Imaging studies, laboratory and physical exam results were discussed and rev iewed in detail. No major barriers to patient understanding were identified. An opportunity to ask questions regarding the treatment plan was provided. All questions were answered. The patient expressed understanding and agreement with the above treatment plan. The patient is aware they should contact our office by phone for worsening of their current condition or the appearance of new urologic symptoms. Compliance is encouraged with any medications and followup testing that is ordered. It is a privilege to participate in the urologic care of your patient. If you have any questions or concerns regarding treatment for the above conditions, or other urologic issues, please do not hesitate to contact me. The office telephone contact is [phone]. This note is constructed using voice recognition software. While every effort has been made to ensure accuracy dry cell battery assembler errors may have been included. Yours sincerely, Dr Dawood Rashid MD, [facility] - Urology Providers of Expert, Compassionate Care for the Genitourinary System Telehealth Telehealth Location of provider rendering services: practice address Location of patient: address on file Patient Identification confirmed using: Name, : Yes Telehealth method: video Patient verbally consented to treatment: Yes Patient verbally consented to billing insurance company: Yes Patient informed of any privacy concerns related to visit: Yes Coding Level of Care Code Est Pt Level 3 (68466) Diagnoses Prostate cancer C61
== END 2023-06-28 14:43 | disposition home or self-care (01) ==
LOC: HO.HUSH 12:48
PROVIDERS: PCP Internal Medicine; Visit Provider Urology
DX: C61 Malignant neoplasm of prostate (principal)
CPT/HCPCS: 99213

== ENCOUNTER → 2023-06-28 12:48 | Outpatient (BNVA) | payer OTHER, SELFPAY | PROVIDERS: PCP Internal Medicine; Visit Provider Urology ==

== ENCOUNTER 2023-12-22 12:02 | Outpatient (REF) | payer OTHER, SELFPAY ==
[2023-12-22 14:34] LABS: Prostate Specific Antigen < 0.10 ng/mL (<0.05-4.0)
== END 2023-12-22 12:03 | disposition home or self-care (01) ==
LOC: HO.HMGCLDS 12:02
PROVIDERS: PCP Internal Medicine; Visit Provider Urology
DX: C61 Malignant neoplasm of prostate (principal); Z12.5 Encounter for screening for malignant neoplasm of prostate
CPT/HCPCS: 36415; 84153

== ENCOUNTER 2023-12-29 14:33 | Outpatient (AMB) | payer OTHER, SELFPAY ==
--- NOTE | 2023-12-29 14:57 | MHC.OFFVIS ---
Intake Visit Reasons: 6m/PSA(set) Intake Note: Patient is Present for Follow Up PSA Urology Medication:None Antibiotic Allergies:None Blood Thinners:None Current PSA Completed 12/22/23 <0.10 Net Web Application Developer Required: No Accompanied by: Self / Same As Patient Allergies No Known Allergies Allergy (Verified 12/29/23 14:58) HPI Comments Details: Jason is a pleasant male. He is a patient of Dr. Salazar. Seen for the following urologic condition - elevated PSA - family history prostate cancer 3rd year follow-up [place] 3 + 4 PSA well controlled Nocturia x2 PSA 10/13 <0.1 T 121, 02/12 0.08 360, 06/16 <0.1 T 360, 11/13 <0.1, 03/16 0.1, 06/17 0.1 T 360, 12/15 <0.1 Prostate cancer - intermediate risk with single core unfavorable, predominant biopsies [place] 3 + 24 November 2020 - initial therapy 6 month GnRH with IMRT 7 100 Gy [facility] Dr. Prieto 07/13 Prior PSA 4.0, 05/14 5.0 Histologic type:? Prostatic acinar adenocarcinoma [place] score:? 3 + 3 = 6 (Parts A, B, C, F, G, H, and I), 3 + 4 = 7 (Part D), and 4 + 3 = 7 (Part E) - % of pattern 4:? 20% (Part D); 60% (Part E) Number cores positive:? 9, Total number of cores:? 12 % of tissue involved:? 50% (Parts A and B), 20% (Part C), 10% (Part D), 60% (Part E), 5% (Part F), 70% (Part G), 40% (Part H), 60%, discontinuously (Part I) - Total - 365/1200 Periprostatic fat inv.:?Not identified, Seminal vesicle inv.:? Not identified, Perineural inv.:? Present, LVI:? Not identified? Staging - 01/12 bone scan [facility], arthritis - 01/12 prostate MRI [facility] calculated volume 20 cc, no extension through the prostate capsule, signal changes bilateral mid to basal aspect of prostate. [facility] Medical History Prostate cancer Family history of prostate cancer Elevated PSA Review of Systems Const Denies chills and Denies fever(s) Card Reports no additional complaints and Denies syncope Resp Denies cough GI Denies abdominal pain and Denies heartburn Reports as per HPI and Denies change in libido Neuro Denies syncope Psych Denies change in libido Endo Denies change in libido Physical Exam Const General: cooperative, healthy appearing, comfortable and no acute distress Orientation/consciousness: patient oriented x3 HEENT Face and sinus: Yes normal facial exam Mouth: moist mucous membranes Neck Neck: Yes normal visual inspection, Yes full ROM and Yes trachea midline Chest Chest palpation & inspection: normal inspection of the chest Resp Effort & Inspection: normal respiratory effort, able to speak in complete sentences and no respiratory distress GI Inspection: Yes normal to inspection Back/Spine/Pelvis Cervical Spine: normal cervical lordosis Thoracic/Lumbar Spine: thoracic and lumbar spine normal to inspection Skin General skin exam: no rashes or lesions noted Neuro General: patient oriented x3, gait normal, tone normal and moves all extremities Extrem General: Yes normal to inspection and Yes capillary refill normal Assessment & Plan Assessment & Plan (1) Prostate cancer: Comment: Grade group 2 01/12 EXBRT with 6m GnRH 07/13 Code(s): C61 - Malignant neoplasm of prostate Category: Medical Plan Six-month follow-up Orders: Orders Prostate Specific Antigen 6 Months C61 - Malignant neoplasm of prostate Patient Instructions: Imaging studies, laboratory and physical exam results were discussed and reviewed in detail. No major barriers to patient understanding were identified. An opportunity to ask questions regarding the treatment plan was provided. All questions were answered. The patient expressed understanding and agreement with the above treatment plan. The patient is aware they should contact our office by phone for worsening of their current condition or the appearance of new urologic symptoms. Compliance is encouraged with any medications and followup testing that is ordered. It is a privilege to participate in the urologic care of your patient. If you have any questions or concerns regarding treatment for the above conditions, or other urologic issues, please do not hesitate to contact me. The office telephone contact is [phone]. This note is constructed using voice recognition software. While every effort has been made to ensure accuracy power equipment technology instructor errors may have been included. Yours sincerely, Dr Dawood Rashid MD, [facility] - Urology Providers of Expert, Compassionate Care for the Genitourinary System Coding Level of Care Code Est Pt Level 3 (45984) Diagnoses Prostate cancer C61
== END 2023-12-29 15:48 | disposition home or self-care (01) ==
PROVIDERS: PCP Internal Medicine; Visit Provider Urology
DX: C61 Malignant neoplasm of prostate (principal)
CPT/HCPCS: 99213

== ENCOUNTER → 2023-12-29 14:33 | Outpatient (BNVA) | payer OTHER, SELFPAY | PROVIDERS: PCP Internal Medicine; Visit Provider Urology ==

== ENCOUNTER 2024-03-19 07:35 | Outpatient (REF) | payer OTHER, SELFPAY ==
[2024-03-19 10:01] LABS: MANUAL DIFF FLAG NO
[2024-03-19 10:05] LABS: Basophils Percent Auto 0.5 % (0-2); Eosinophils Absolute Auto 0.3 X10*3/uL (0.0-0.4); Eosinophils Percent Auto 4.6 % (0-4); Hematocrit 43.7 % (42.0-52.0); Hemoglobin 15.4 g/dl (14.0-18.0); Imm Gran Abs Auto 0.02 X10*3/uL (0.00-0.03); Imm Gran Pct Auto 0.4 % (0.0-0.4); Lymphocytes Absolute Auto 1.8 X10*3/uL (1.2-4.9); Lymphocytes Percent Auto 31.2 % (20-40); Mean Corpuscular HGB Conc 35.2 g/dl (31.0-36.0); Mean Corpuscular Hemoglobin 32.1 pg (27.0-33.0); Mean Platelet Volume 11.2 fL (9.4-12.4); Monocytes Absolute Auto 0.3 X10*3/uL (0.1-1.2); Neutrophils Absolute Auto 3.2 x10*3/uL (2.0-8.3); Neutrophils Percent Auto 57.3 % (45-73); Platelet Count 185 X10*3/uL (160-400); Red Cell Distribution Width 12.6 % (11.0-16.0); White Blood Count 5.7 X10*3/uL (4.8-10.8)
[2024-03-19 10:24] LABS: Alanine Aminotransferase 28 U/L (0-40); Albumin Level 4.1 g/dL (3.5-5.0); Alkaline Phosphatase 91 U/L (39-117); Anion Gap 9 (12-20); Aspartate Amino Transferase 21 U/L (5-37); Bilirubin Total 0.7 mg/dL (0.0-1.0); Blood Urea Nitrogen 16 mg/dL (9-16); Calcium 9.3 mg/dL (8.4-10.2); Carbon Dioxide 29 mmol/L (22-29); Chloride 102 mmol/L (96-108); Cholesterol 140 mg/dL (<200); Estimated Glomerular Filt Rate > 60; Glucose Fasting 142 mg/dL (60-99); HDL Cholesterol 48 mg/dL (>40); LDL Cholesterol Calculated 78 mg/dL (<100); Potassium 4.1 mmol/L (3.3-5.1); Sodium 136 mmol/L (135-145); Total Protein 6.9 g/dL (6.5-8.0); Triglycerides 72 mg/dL (<150)
== END 2024-03-19 07:36 | disposition home or self-care (01) ==
LOC: HO.HMGCLDS 07:35
PROVIDERS: PCP Internal Medicine; Visit Provider Internal Medicine
DX: R53.83 Other fatigue (principal); E78.5 Hyperlipidemia, unspecified
CPT/HCPCS: 36415; 80053; 80061; 85025

== ENCOUNTER 2024-03-25 14:17 | Outpatient (REF) | payer OTHER, SELFPAY | END 2024-03-25 14:18 | disposition home or self-care (01) | LOC: HO.HMGCX 14:17 | PROVIDERS: PCP Internal Medicine; Visit Provider Internal Medicine | DX: E11.9 Type 2 diabetes mellitus without complications (principal); M25.561 Pain in right knee; R09.89 Other specified symptoms and signs involving the circulatory and respiratory systems | CPT/HCPCS: 71046; 73564 ==

== ENCOUNTER → 2024-03-25 14:22 | Outpatient (BNV) | payer OTHER, SELFPAY | PROVIDERS: PCP Internal Medicine; Visit Provider Radiology Diagnostic Radiology | DX: M25.861 Other specified joint disorders, right knee (principal); R07.9 Chest pain, unspecified | CPT/HCPCS: 71046; 73564 ==

== ENCOUNTER 2024-03-27 09:16 | Outpatient (REF) | payer OTHER, SELFPAY ==
[2024-03-27 10:40] LABS: Estimated Average Glucose 126 mg/dL; Hemoglobin A1C 156.4649 umol/L; Total Hemoglobin (HGBA1C) 3753.9571 umol/L
== END 2024-03-27 09:17 | disposition home or self-care (01) ==
LOC: HO.HMGCLDS 09:16
PROVIDERS: PCP Internal Medicine; Visit Provider Internal Medicine
DX: E11.9 Type 2 diabetes mellitus without complications (principal)
CPT/HCPCS: 36415; 83036

== ENCOUNTER 2024-07-16 12:05 | Outpatient (REF) | payer OTHER, SELFPAY ==
[2024-07-16 14:49] LABS: Prostate Specific Antigen < 0.10 ng/mL (<0.05-4.0)
== END 2024-07-16 12:06 | disposition home or self-care (01) ==
LOC: HO.HMGCLDS 12:05
PROVIDERS: PCP Internal Medicine; Visit Provider Urology
DX: C61 Malignant neoplasm of prostate (principal); Z12.5 Encounter for screening for malignant neoplasm of prostate
CPT/HCPCS: 36415; 84153

== ENCOUNTER 2024-07-24 09:15 | Outpatient (AMB) | payer OTHER, SELFPAY ==
--- NOTE | 2024-07-24 09:15 | MHC.OFFVIS ---
Intake Visit Reasons: 6M PSA follow up Intake Note: Patient is present for 6M/PSA Urology Medication:NONE Antibiotic Allergy:NONE Blood Thinner:NONE Measurer Machine Required: No Allergies No Known Allergies Allergy (Verified 07/24/24 09:16) HPI Comments Details: Jason is a pleasant male. He is a patient of Dr. Salazar. Seen for the following urologic condition - elevated PSA - family history prostate cancer Telemedicine Evaluation 15 min Consultation DoxBroadcastr Taz Video 3rd year follow-up Highest core 4+3 60% PSA well controlled Discussed urinary urgency. 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 Prescription provided Nocturia x2 PSA 10/13 <0.1 T 121, 02/12 0.08 360, 06/16 <0.1 T 360, 11/13 <0.1, 03/16 0.1, 06/17 0.1 T 360, 12/15 <0.1, 07/16 <0.1 Prostate cancer - intermediate risk with single core unfavorable, predominant biopsies [place] 3 + 24 November 2020 - initial therapy 6 month GnRH with IMRT 7 100 Gy [facility] Dr. Prieto 07/13 Prior PSA 4.0, 05/14 5.0 Histologic type:? Prostatic acinar adenocarcinoma [place] score:? 3 + 3 = 6 (Parts A, B, C, F, G, H, and I), 3 + 4 = 7 (Part D), and 4 + 3 = 7 (Part E) - % of pattern 4:? 20% (Part D); 60% (Part E) Number cores positive:? 9, Total number of cores:? 12 % of tissue involved:? 50% (Parts A and B), 20% (Part C), 10% (Part D), 60% (Part E), 5% (Part F), 70% (Part G), 40% (Part H), 60%, discontinuously (Part I) - Total - 365/1200 Periprostatic fat inv.:?Not identified, Seminal vesicle inv.:? Not identified, Perineural inv.:? Present, LVI:? Not identified? Staging - 01/12 bone scan [facility], arthritis - 01/12 prostate MRI [facility] calculated volume 20 cc, no extension through the prostate capsule, signal changes bilateral mid to basal aspect of prostate. [facility] Medical History Prostate cancer Family history of prostate cancer Elevated PSA Review of Systems Const All systems reviewed & are unremarkable except as noted in HPI and below Reports no additional complaints Resp Reports no additional complaints GI Reports no additional complaints Reports as per HPI Musc Reports no additional complaints Physical Exam Telemedicine evaluation Appropriate responses Regular breathing rate and rhythm HEENT Head: Yes normal to inspection Ears: hearing grossly normal bilaterally Eyes General: appearance normal, both eyes and all related structures Neck Neck: Yes normal visual inspection Chest Chest palpation & inspection: normal inspection of the chest Resp Effort & Inspection: normal respiratory effort and able to speak in complete sentences Telehealth Telehealth Location of provider rendering services: practice address Location of patient: address on file Patient Identification confirmed using: Name, : Yes Telehealth method: voice only Patient verbally consented to treatment: Yes Patient verbally consented to billing insurance company: Yes Patient informed of any privacy concerns related to visit: Yes Assessment & Plan Assessment & Plan (1) Prostate cancer: Comment: Grade group 2 01/12 EXBRT with 6m GnRH 07/13 Code(s): C61 - Malignant neoplasm of prostate Category: Medical (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 usage Orders: Orders Prostate Specific Antigen 6 Months C61 - Malignant neoplasm of prostate Medications: New oxybutynin chloride 5 mg PO Q8H PRN 30 tabs 1RF bladder spasms R39.15 - Urgency of urination Patient Instructions: This note is constructed using voice recognition software. While every effort has been made to ensure accuracy multisensor intelligence officer errors may have been included. Imaging studies, laboratory and physical exam results were discussed and reviewed in detail. No major barriers to patient understanding were identified. An opportunity to ask questions regarding the treatment plan was provided. All questions were answered. The patient expressed understanding and agreement with the above treatment plan. The patient is aware they should contact our office by phone for worsening of their current condition or the appearance of new urologic symptoms. Compliance is encouraged with any medications and followup testing that is ordered. It is a privilege to participate in the urologic care of your patient. If you have any questions or concerns regarding treatment for the above conditions, or other urologic issues, please do not hesitate to contact me. The office telephone contact is [phone]. Sincerely, Dr Dawood Rashid MD, [facility] - Urology Compassionate Specialist Care for the Genitourinary System Coding Level of Care Code Tele Est Pt Level 4 (45259) Complex EM visit Add On G2211 Diagnoses Prostate cancer C61 Radiation cystitis N30.40
== END 2024-07-24 11:06 | disposition home or self-care (01) ==
LOC: HO.HUSH 09:15
PROVIDERS: PCP Internal Medicine; Visit Provider Urology
DX: C61 Malignant neoplasm of prostate (principal); N30.40 Irradiation cystitis without hematuria
CPT/HCPCS: 99214

== ENCOUNTER 2025-01-08 11:01 | Outpatient (REF) | payer OTHER, SELFPAY ==
[2025-01-08 14:09] LABS: Prostate Specific Antigen < 0.10 ng/mL (<0.05-4.0)
--- OUTSIDE RECORDS SUMMARY | 2025-01-08 14:10 | XMS_ITS | Patient Health Record ---
Author Organization [facility] Address [address] [place] [address] Care Team Providers Care Non Profit Director Name Role Phone Marie (RETIRED) Ino MAZARIEGOS Primary Care Provider Unavailable Romeo Ortiz Jr Unavailable Reason For Referral No Information Medications Medication SIG (Take, Route, Fr equency, Duration) Notes Start Date End Date Status MoviPrep 100 GM as directed before c olonoscopy Orally for 1 dose 03/29/2012 04/24/2024 Active LORazepam 04/24/2024 04/24/2024 Active Social History Tobacco Use: Social History Observation Description Date Details (start date - stop date) Former Smoker NA - NA Tobacco Use/Smoking Question Answer Notes Patient is a former smoker How long has it been since you last smoked? > 10 years Alcohol Screen Question Answer Notes Did you have a drink contain ing alcohol in the past year? Yes Points 5 Interpretation Positive How often did you have a dri nk containing alcohol in the past year? 2 to 3 times a week (3 points) How many drinks did you have on a typical day when you were drinking in the past year? 3 or 4 drinks (1 point) How often did you have 6 or more drinks on one occasion in the past year? Less than monthly (1 point) Problems Problem Type SNOMED Code ICD Code Onset Dates Problem Status W/U Status Risk Notes Problem Left upper quadrant pain (823344467) Abdominal discomfort in left upper quadrant (789.02) Active confirmed Plan Of Treatment Future Test Test Name Order Date COLONOSCOPY 03/29/2012 Insurance Providers Payer Name Payer Address Payer Phone Subscriber Number Group Number Insured Name Patient Relationship to Insured Coverage Start Date Coverage End Date [facility] [address] [place] [address] [id number] ZENIA EDMONDSON Self - patient is the insured Medical (General) History Medical History History ICD Code Denies [place],DM,CVA,Lung disease,renal dise ase Surgical History Surgery Date(Month/Year) Cholecystectomy 2002
--- OUTSIDE RECORDS SUMMARY | 2025-01-08 14:10 | XMS_ITS | Clinical Summary ---
Author Organization [facility] Address [address] [place] [address] [place] [id number] Phone Care Team Providers Care Scrubber System Attendant Name Role Phone Ino Salazar MD Primary Care Provider +1- [phone] Allergies No known active allergies Medications finasteride (PROSCAR) 5 mg tablet Take 5 mg by mouth daily. Active atorvastatin (LIPITOR) 10 MG tablet Take 10 mg by mouth daily. Active LORazepam (ATIVAN) 1 MG tablet Take 1 mg by mouth every 6 (six) hours as needed for anxiety. Active Active Problems Problem Noted Date Diagnosed Date Prostate cancer 02/17/2021 Family History Medical History Relation Comments Cancer Father Cancer Sister Relation Status Comments Father Sister Social History Tobacco Use Types Packs/Day Years Used Date Smoking Tobacco: Former Cigarettes Q uit: 2012 Smokeless Tobacco: Never Alcohol Use Standard Drinks/Week Comments Yes 0 (1 standard drink = 0.6 oz pur e alcohol) Education Answer Date Recorded Are you interested in more education? Not on freeman e 08/20/2022 Are you concerned about learning? Not on file 08/20/2022 No 08/20/2022 No 08/20/2022 Digital Access Answer Date Recorded No 09/14/2022 No 09/14/2022 No 09/14/2022 Reliable internet access at home? Not on file 09/14/2022 Device with a working camera? Not on file Sex and Gender Information Value Date Recorded Sex Assigned at Not on file Legal Sex Male 10:36 AM EDT Gender Identity Not on file Sexual Orientation Not on file Last Filed Vital Signs Vital Sign Reading Time Taken Comments Blood Pressure 176/77 06/22/2021 3:45 PM EST Pulse 75 06/22/2021 3:45 PM EST Temperature - - Respiratory Rate - - Oxygen Saturation 97% 06/22/2021 3:45 PM EST Inhaled Oxygen Concentration - - Weight 103 kg (227 lb 1.6 oz) 06/22/2021 3:45 PM EST Height - - Body Mass Index - - Plan of Treatment Health Maintenance Due Date Last Done Comments Adult Td,Tdap Booster 1960 LIPID PANEL 1960 DEPRESSION SCREENING 1972 SMOKING Hx and SMOKELESS TOBACCO SCREENING 1973 HEPATITIS C SCREENING 1978 HIV ONE-TIME SCREENING (18-65 YEARS) 1978 PNEUMOCOCCAL VACCINES (50+ years) (1 of 2 - PCV) 1979 ZOSTER VACCINES (1 of 2) 1979 COLOGUARD 2005 COLONOSCOPY 2005 COLORECTAL CANCER SCREENING 2005 FIT TEST 2005 FOBT 2005 SIGMOIDOSCOPY 2005 VIRTUAL COLONOSCOPY 2005 INFLUENZA VACCINE (#1) 2024 , 02/24/2020, 03/01/2019, Additional history exists COVID-19 VACCINE (2024- season) 2024 03/17/2021, 09/09/2020, 08/19/2020 RSV VACCINE (1 - 1-dose 75+ series) 2035 HEPATITIS A VACCINES Aged Out No long er eligible based on patient's age to complete this topic HIB VACCINES Aged Out No longer eligi ble based on patient's age to complete this topic MENINGOCOCCAL VACCINES (ACWY) Aged Out No longer eligible based on patient's age to complete this topic MENINGOCOCCAL VACCINES (B) Aged Out N o longer eligible based on patient's age to complete this topic Medical Devices Not on file Insurance [facility] IN[facility] [employer] TOTAL CHOICE INDEMNITY [facility] TOTAL CHOICE INDEMNITY [employer] TOTAL CHOICE INDEMNITY [employer] TOTAL CHOICE INDEMNITY [employer] TOTAL CHOICE INDEMNITY [employer] TOTAL CHOICE INDEMNITY [facility] [facility] TOTAL CHOICE INDEMNITY [facility] TOTAL CHOICE INDEMNITY Care Teams Scrubber System Attendant Relationship Specialty Start Date End Date Ino Salazar MD [address] [place] [id number] PCP - General Internal Medicine 01/28/21 Additional Source Comments The information contained in this document represents components of the legal health record. It is not the complete legal health record.[facility]
--- OUTSIDE RECORDS SUMMARY | 2025-01-08 14:10 | XMS_ITS | Encounter Summary ---
Author Organization [facility] Address [address] [place] [phone] Phone Care Team Providers Care Utilities Operator Name Role Phone Ino Salazar MD Primary Care Provider +1- [phone] Encounter Details Date Type Department Care Team (Late st Contact Info) Description 02/05/2021 Ancillary Orders [facility],Outside Imaging [address] [place] [address] System, Provider Not In, [place] [address] Social History Tobacco Use Types Packs/Day Years Used Date Smoking Tobacco: Never Assessed Sex and Gender Information Value Date Recorded Sex Assigned at Not on file Legal Sex Male 10:36 AM EDT Gender Identity Not on file Sexual Orientation Not on file documented as of this encounter Plan of Treatment Not on file documented as of this encounter Results * MRI Pelvis (Bone) Outside (No Interpretation) (01/06/2021 12:00 AM EDT) Narrative SYSTEMGENERATED, DOCUMENTATION - 02/05/2021 9:55 AM EDT This study is for PACS storage only and not for interpretation. us Provider Not In System PhD IMG OUTSIDE IMAGING W /OUT INTERPRETATION Final Result documented in this encounter Visit Diagnoses Not on filedocumented in this encounter Care Teams Utilities Operator Relationship Specialty Start Date End Date Ino Salazar MD [address] [place] [id number] PCP - General Internal Medicine 01/28/21 documented as of this encounter Additional Source Comments The information contained in this document represents components of the legal health record. It is not the complete legal health record.[facility]
== END 2025-01-08 11:02 | disposition home or self-care (01) ==
LOC: HO.HMGCLDS 11:01
PROVIDERS: Visit Provider Urology
DX: Z12.5 Encounter for screening for malignant neoplasm of prostate (principal); C61 Malignant neoplasm of prostate
CPT/HCPCS: 36415; 84153

== ENCOUNTER 2025-01-24 15:12 | Outpatient (AMB) | payer OTHER, SELFPAY ==
--- NOTE | 2025-01-24 15:14 | MHC.OFFVIS ---
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 He is a patient of Dr. Salazar. Seen for the following urologic condition - elevated PSA - family history prostate cancer Telemedicine Evaluation 15 min Consultation [employer] Fourth year of follow-up Highest core 4+3 60% PSA well controlled Discussed urinary urgency. Has been working endorse so control not so much of an issue Nocturia x2 PSA 10/13 <0.1 T 121, 02/12 0.08 360, 06/16 <0.1 T 360, 11/13 <0.1, 03/16 0.1, 06/17 0.1 T 360, 12/15 <0.1, 07/16 <0.1, 01/16 < 0.1 Move to yearly Prostate cancer - intermediate risk with single core unfavorable, predominant biopsies Esther 3 + 24 November 2020 - initial therapy 6 month GnRH with IMRT 7 100 Gy [facility] Dr. Prieto 07/13 Prior PSA 4.0, 05/14 5.0 Histologic type:? Prostatic acinar adenocarcinoma [place] score:? 3 + 3 = 6 (Parts A, B, C, F, G, H, and I), 3 + 4 = 7 (Part D), and 4 + 3 = 7 (Part E) - % of pattern 4:? 20% (Part D); 60% (Part E) Number cores positive:? 9, Total number of cores:? 12 % of tissue involved:? 50% (Parts A and B), 20% (Part C), 10% (Part D), 60% (Part E), 5% (Part F), 70% (Part G), 40% (Part H), 60%, discontinuously (Part I) - Total - 365/1200 Periprostatic fat inv.:?Not identified, Seminal vesicle inv.:? Not identified, Perineural inv.:? Present, LVI:? Not identified? Staging - 01/12 bone scan [facility], arthritis - 01/12 prostate MRI [facility] calculated volume 20 cc, no extension through the prostate capsule, signal changes bilateral mid to basal aspect of prostate. [facility] Medical History Prostate cancer Family history of prostate cancer Elevated PSA Review of Systems Const All systems reviewed & are unremarkable except as noted in HPI and below Denies chills and Denies fever(s) Card Reports no additional complaints and Denies syncope Resp Denies cough GI Denies abdominal pain and Denies heartburn Reports as per HPI and Denies change in libido Musc Reports no additional complaints Neuro Denies syncope Psych Denies change in libido Endo Denies change in libido Physical Exam Telemedicine evaluation Appropriate responses Regular breathing rate and rhythm Const General: cooperative, healthy appearing, comfortable and no acute distress Orientation/consciousness: patient oriented x3 HEENT Head: Yes normal to inspection Ears: hearing grossly normal bilaterally Face and sinus: Yes normal facial exam Mouth: moist mucous membranes Eyes General: appearance normal, both eyes and all related structures Neck Neck: Yes normal visual inspection, Yes full ROM and Yes trachea midline Chest Chest palpation & inspection: normal inspection of the chest Resp Effort & Inspection: normal respiratory effort, able to speak in complete sentences and no respiratory distress GI Inspection: Yes normal to inspection Back/Spine/Pelvis Cervical Spine: normal cervical lordosis Thoracic/Lumbar Spine: thoracic and lumbar spine normal to inspection Skin General skin exam: no rashes or lesions noted Neuro General: patient oriented x3, gait normal, tone normal and moves all extremities Extrem General: Yes normal to inspection and Yes capillary refill normal Telehealth Telehealth Telehealth Platform: [facility] Location of provider rendering services: practice address Location of patient: address on file Patient Identification confirmed using: Name, : Yes Telehealth method: video Patient verbally consented to treatment: Yes Patient verbally consented to billing insurance company: Yes Patient informed of any privacy concerns related to visit: Yes Minutes spent on Phone/Video with Pt.: 15 Assessment & Plan Assessment & Plan (1) Prostate cancer: Comment: Grade group 2 01/12 EXBRT with 6m GnRH 07/13 Code(s): C61 - Malignant neoplasm of prostate Category: Medical (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 While every effort has been made to ensure accuracy slate cutter errors may have been included. Imaging studies, laboratory and physical exam results were discussed and reviewed in detail. No major barriers to patient understanding were identified. An opportunity to ask questions regarding the treatment plan was provided. All questions were answered. The patient expressed understanding and agreement with the above treatment plan. The patient is aware they should contact our office by phone for worsening of their current condition or the appearance of new urologic symptoms. Compliance is encouraged with any medications and followup testing that is ordered. It is a privilege to participate in the urologic care of your patient. If you have any questions or concerns regarding treatment for the above conditions, or other urologic issues, please do not hesitate to contact me. The office telephone contact is [phone]. Sincerely, Dr Dawood Rashid MD, [facility] - Urology Compassionate Specialist Care for the Genitourinary System Coding Level of Care Code Tele Est Pt Level 3 (41194) Complex EM visit Add On G2211 Diagnoses Prostate cancer C61 Radiation cystitis N30.40
--- OUTSIDE RECORDS SUMMARY | 2025-01-24 15:14 | XMS_ITS | Patient Health Record ---
Author Organization [facility] Address [address] [place] [address] Care Team Providers Care Railcar Brake Operator Name Role Phone Marie (RETIRED) Ino MAZARIEGOS [...] Risk Notes Problem Left upper quadrant pain ([id number]) Abdominal discomfort in left upper quadrant (789.02) Active confirmed Plan Of Treatment Future Test Test Name Order Date COLONOSCOPY 03/29/2012 Insurance Providers Payer Name Payer Address Payer Phone Subscriber Number Group Number Insured Name Patient Relationship to Insured Coverage Start Date Coverage End Date [facility] [address] [place] [address] [id number] ZENIA EDMONDSON Self - patient is the insured Medical (General) History Medical History History ICD Code Denies [place],DM,CVA,Lung disease,renal dise ase Surgical History Surgery Date(Month/Year) Cholecystectomy 2002
--- OUTSIDE RECORDS SUMMARY | 2025-01-24 15:15 | XMS_ITS | Clinical Summary ---
Author Organization [facility] Address [address] [place] [address] [place] [id number] Phone Care Team Providers Care Executive Team Leader Name Role Phone Ino Salazar MD Primary Care Provider +1- [phone] Allergies No known active allergies Medications finasteride [...] topic Medical Devices Not on file [facility] TOTAL [facility]ICE INDEMNITY [employer] TOTAL CHOICE INDEMNITY [employer] [facility] TOTAL CHOICE INDEMNITY [employer] TOTAL CHOICE INDEMNITY [employer] TOTAL CHOICE INDEMNITY [employer] TOTAL CHOICE INDEMNITY [employer] TOTAL CHOICE INDEMNITY [employer] [facility] TOTAL CHOICE INDEMNITY [facility] TOTAL CHOICE INDEMNITY Care Teams Executive Team Leader Relationship Specialty Start Date End Date Ino Salazar MD [address] [place] [id number] PCP - General Internal Medicine 01/28/21 Additional Source Comments The information contained in this document represents components of the legal health record. It is not the complete legal health record.[facility]
--- OUTSIDE RECORDS SUMMARY | 2025-01-24 15:15 | XMS_ITS | Encounter Summary ---
Author Organization [facility] Address [address] [place] [phone] Phone Care Team Providers Care Business Management Intern Name Role Phone Ino Salazar MD Primary Care Provider [phone]- [phone] Encounter Details Date Type Department Care Team (Late st Contact Info) Description 02/05/2021 Ancillary Orders [facility],Outside Imaging [address] [place] [address] System, Provider Not In, [place] [address] Social History Tobacco Use Types Packs/Day Years [...] on filedocumented in this encounter Care Teams Business Management Intern Relationship Specialty Start Date End Date Ino Salazar MD [address] [place] [id number] PCP - General Internal Medicine 01/28/21 documented as of this encounter Additional Source Comments The information contained in this document represents components of the legal health record. It is not the complete legal health record.[facility]
== END 2025-01-24 16:30 | disposition home or self-care (01) ==
LOC: HO.HUSH 15:12
PROVIDERS: PCP Internal Medicine; Visit Provider Urology
DX: C61 Malignant neoplasm of prostate (principal); N30.40 Irradiation cystitis without hematuria
CPT/HCPCS: 99213

== ENCOUNTER 2025-03-10 09:31 | Outpatient (AMB) | payer OTHER, SELFPAY ==
--- NOTE | 2025-03-10 09:42 | A.OFFPC_ITS ---
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 Required: No Accompanied by: Self / Same As Patient Allergies No Known Allergies Allergy (Verified 03/10/25 10:13) Medication List - Last Reconciled 03/10/25 by JUSTINO Jasso atorvastatin 10 mg PO DAILY clonazepam 1 mg PO TID PRN oxybutynin chloride 5 mg PO Q8H PRN Tobacco use date assessed: 03/10/25 Fall risk assessment: No Falls in past year Last assessed Fall Risk: 03/10/25 Dental Screening Dental Screen Date: 03/10/25 Did you have a dental visit in the last 12 months?: Yes Did you have a dental problem in the last 6 months where you did not have access to dental care?: No Was dental information given to patient?: Patient has dentist HPI HPI Comments History of Present Illness Details History of Present Illness Previous PCP: Dr. Salazar Last visit:February last Last PE: same Specialist: Urology (DR. Rashid) prostate ca 4 years ago, treated in 2021, reports that his numbers are good and he will be going on a one year follow-up OBGYN:n/a Past medical history: hx prostate ca, anxiety, past surgical history: cholecystectomy 2002 Medications: Clonazepam 1 mg t.i.d. p.r.n. in chart with the patient reports that he only takes it once a day at bedtime. Family HX: father and grandfather has prostate ca-they both lived into their 80s. Problem: The patient is a 64-year-old male presenting for management of anxiety, insomnia, and evaluation of recent chest pain. He reports significant anxiety and worry, which primarily impacts his sleep. He has been taking clonazepam but ran out about 10 days ago, which has resulted in not sleeping for nine nights. The patient has a history of prostate cancer diagnosed about 4 to 5 years ago, for which he underwent radiation treatment. 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 Approximately a week ago, after a month of abstaining from alcohol, the patient drank a 6-pack of beer and subsequently experienced an episode of unbelievable pain in his upper abdomen/chest area, which he found frightening. He also complains of soreness in his ribs on palpation. He reports a history of constipation, historically managed with Metamucil. 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 In terms of habits, he drinks a tall can of beer almost daily, has gained a significant amount of weight, and adds salt to nearly all his food. He also takes ibuprofen every 3-4 hours daily for pain. A chest X-ray performed last year was reportedly clear, that was reviewed with patient. He c/o left rib pain that is reproducible with palpation suggesting costochondritis. Offered rib x-ray to further evaluate the rib but the patient wants to hold off on this for now. Health Maintenance - Diet: The patient was counseled on red ucing his salt intake due to high blood pressure. - Substance Use: The risks of combining alcohol with clonazepam were discussed, and a slow taper off alcohol was recommended. - Labs: Blood work will be ordered to as sess kidney function and to check for liver fibrosis. - Screening: Last physical exam was in [facility] of the previous year. - A complete physical is scheduled in 7 weeks. 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 - Substance Use: He reports drinking a t all can of beer daily, and has been drinking since high school. - Nutritional Intake: He admits to addin g salt to almost everything he eats. - Living Situation: He lives with his wi fe, and their children have moved out. Results - Imaging: A chest x-ray from the previo us year was noted to be clear. 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 1. Little interest or pleasure in doing things: more than half the days 2. Feeling down, depressed, or hopeless: several days 3. Trouble falling or staying asleep, or sleeping too much: nearly every day 4. Feeling tired or having little energy: nearly every day 5. Poor appetite or overeating: several days 6. Feeling bad about yourself - or that you are a failure or have let yourself or your family down: several days 7. Trouble concentrating on things, such as reading the newspaper or watching television: more than half the days 8. Moving or speaking so slowly that other people could have noticed. Or the opposite - being so fidgety or restless that you have been moving around a lot more than usual: not at all 9. Thoughts that you would be better off or of hurting yourself in some way: not at all Total score: 13 Source: Developed by Drs. Cristobal Bailey, Cindy Jones, Saroj Andrade and colleagues, with an educational annalise from [employer]. Thrive Questionnaire Date Thrive assessed: 03/03/25 I am a: Patient What is your living situation today?: I have a steady place to live Within the past 12 months, did the food you bought not last and you didn't have the money to get more?: Never true Within the past 12 months, did you worry whether your food would run out before you got money to buy more?: Never true Do you have trouble paying for medicines?: No Do you have trouble getting transportation to medical appointments?: No Do you have trouble paying your heating and electricity bill?: No Do you have trouble taking care of your child, family member or friend?: No Do you have trouble with day-to-day activities such as bathing, preparing meals, shopping, managing finances, etc.?: No Are you currently unemployed and looking for a job?: No Are you interested in more education?: No Please select the resources that you would like help with: None Currently or been in a relationship where the following occur: No concerns reported THRIVE Score: 0 AUDIT C Alcohol Use Questionnaire (AUDIT-C) 1. How often do you have a drink containing alcohol?: 2-3 times a week 2. How many drinks containing alcohol do you have on a typical day when you are drinking?: 1 or 2 3. How often do you have six or more drinks on one occasion?: Less than monthly Total Score: 4 JULIANA-7 AMB Questionnaire JULIANA-7 Date JULIANA - 7 assessed: 03/10/25 Feeling nervous, anxious, or on edge: 0 = Not at all Not being able to stop or control worryin = Not at all Worrying too much about different things: 0 = Not at all Trouble relaxin = Not at all Being so restless that it is hard to sit still: 0 = Not at all Becoming easily annoyed or irritable: 0 = Not at all Feeling afraid as if something awful might happen: 0 = Not at all Total JULIANA-7 score (0-4 normal; 5-9 mild; 10-14 moderate; 15-21 severe): 0 Source: Developed by Drs. Cristobal Bailey, Cindy Jones, Saroj Andrade and colleagues, with an educational annalise from [employer]. Review of Systems Narrative Review of Systems - Constitutional: Reports weight gain and feeling sleepy due to stress. - Psychiatric: Reports anxiety, worry, and feeling down. - Neurological: Reports difficulty falling asleep and staying asleep. - Cardiovascular: Reports chest pain after drinking alcohol. - Respiratory: Reports a daily cough. - Denies shortness of breath. - Gastrointestinal: Reports heartburn and constipation. - Denies black or red stool. - Genitourinary: Reports urinary frequency. - Musculoskeletal: Reports soreness in his ribs. Const Reports difficulty sleeping and Denies headache(s) Eyes Denies loss of vision ENT Denies vertigo, Denies dizziness, Denies headache(s) and Denies sore throat Card Reports chest pain (after alcohol or certain foods), Denies leg edema and Denies lightheadedness Resp Denies cough, Denies hemoptysis, Denies wheezing and Reports other (Left rib pain) GI Denies abdominal pain, Denies melena, Denies constipation, Reports heartburn (On and off), Denies diarrhea and Denies vomiting Denies dysuria, Denies urinary frequency and Denies urinary urgency Musc Denies arthralgias, Denies joint swelling, Denies numbness, Denies tingling and Reports other (Left rib pain) Neuro Denies Abnormal speech present, Denies behavioral changes, Denies vertigo, Denies dizziness, Denies headache(s), Denies loss of vision, Denies memory loss, Denies numbness and Denies tingling Psych Reports anxiety, Denies behavioral changes, Denies depression, Denies memory loss and Denies panic attacks Woo/Lymph Denies easy bleeding and Denies easy bruising Aller/Immun Denies wheezing Physical exam (Primary Care) Vital Signs: Last Vital Signs Temp 97.1 F 03/10/25 09:51 Pulse 87 03/10/25 09:51 Resp 18 03/10/25 09:51 BP 140/74 H 03/10/25 09:51 Pulse Ox 97 03/10/25 09:51 Oxygen Delivery Method Room Air 03/10/25 09:51 BMI result Body Mass Index 32.6 Tobacco/Smoking Status: Tobacco use Status Tobacco use date assessed 03/10/25 03/10/25 10:07 Patient Tobacco Use Status Former Tobacco user 03/10/25 10:07 e-Cigarette/Vaping Use Never Used 03/10/25 10:07 PHQ-9: PHQ-9 Score PHQ-9: Total score 13 03/10/25 09:42 Thrive Assessment: Date of Thrive Assessment Date Thrive assessed 03/03/25 03/10/25 09:42 Currently or been in a relationship where the following occur: No concerns reported Narrative Physical Exam - Vitals: Blood pressure is noted to be very high. - Abdomen: No pain on palpation of the kidneys, although they may be slightly tender. - Chest Wall: Tenderness to palpation over the ribs is noted. Const General: healthy appearing, no acute distress, alert and awake Nutritional Appearance: well nourished Orientation/consciousness: oriented to person, oriented to place and oriented to time HENMT Ears: TM's normal bilaterally General nose exam: Normal nasal mucous membranes and turbinates present Eyes Conjunctivae: conjunctivae normal Sclerae: sclerae normal Pupils: Equal, round and reactive pupils present Neck Neck: Yes no lymphadenopathy and Yes no JVD Thyroid: Thyroid normal Carotids: no bruits Resp Effort & Inspection: normal respiratory effort, not tachypneic and other (Left rib pain with palpation) Auscultation: no crackles, no rales, no rhonchi and no wheezes Cardio Rate: regular rate Rhythm: regular rhythm Heart sounds: no murmurs and normal S1 and S2 GI Palpation (GI): Soft to palpation, nontender, no hepatomegaly and no splenomegaly Auscultation: normal bowel sounds General: Yes no CVA tenderness Back/Spine/Pelvis Back: no CVA tenderness Skin General skin exam: no rashes or lesions noted and dry skin Neuro General: oriented to person, oriented to place and oriented to time Cranial nerves: Yes Equal, round and reactive pupils present Speech: No Abnormal speech present Gait exam (Neuro): Normal gait present Motor exam (neuro): no tremor noted Extrem Right upper extremity: full ROM Left upper extremity: full ROM Right lower extremity: full ROM; no edema Left lower extremity: full ROM; no edema Psych Mental Status: mental status grossly normal Speech and movement: Normal speech and movement present Affect: normal affect Attitude: cooperative Thought process: Normal thought process present Coding Level of Care Code New Pt Level 4 (43190) Diagnoses Anxiety F41.9 Insomnia, unspecified type G47.00 Insomnia type: unspecified Alcohol abuse F10.10 Heartburn R12 BPH w urinary obs/LUTS N40.1; N13.8 Rib pain on left side R07.81 Time Spent (min) 39 Assessment & Plan Assessment & Plan (1) Anxiety: Code(s): F41.9 - Anxiety disorder, unspecified Category: Medical (2) Insomnia: Code(s): G47.00 - Insomnia, unspecified Category: Medical Qualifiers: Insomnia type: unspecified Qualified Code(s): G47.00 - Insomnia, unspecified (3) Alcohol abuse: Code(s): F10.10 - Alcohol abuse, uncomplicated Category: Social Hx (4) Heartburn: Code(s): R12 - Heartburn Category: Medical (5) BPH w urinary obs/LUTS: Code(s): N40.1 - Benign prostatic hyperplasia with lower urinary tract symptoms; N13.8 - Other obstructive and reflux uropathy Category: Medical (6) Rib pain on left side: Code(s): R07.81 - Pleurodynia Category: Medical Plan Plan Patient was informed and verbally consented to the use of an ambient scribe for clinic note documentation during this visit. 1. Anxiety And Insomnia The patient's anxiety and insomnia are significant, with sleep severely impacted by the recent cessation of clonazepam. Clonazepam is not a first-line medication for anxiety, and the prescribed dose is high. A referral will be made to behavioral health to address the root cause of the anxiety. A refill for clonazepam will be provided for use once at night as needed to manage symptoms and avoid abrupt withdrawal, with the goal of a slow taper. The patient was also counseled on sleep hygiene, specifically to avoid watching TV in bed. 2. Hypertension The patient's blood pressure is high, which is likely related to anxiety and high dietary salt intake. The patient is advised to stop adding salt to his food. Blood work will be ordered to check kidney function. A follow-up is scheduled in four weeks to re-evaluate. 3. Gastroesophageal Reflux Disease (Gerd) And Chest Pain The recent episode of chest pain after alcohol intake is suspicious for severe GERD or a peptic ulcer. The patient's heavy ibuprofen use is a significant risk factor. The patient will be started on a proton-pump inhibitor for heartburn. He is instructed to monitor for signs of gastrointestinal bleeding, such as black, tarry stools. He is to decrease the amount of ibuprofen his is taking. The patient was counseled against eating close to bedtime. 4. Alcohol Abuse The patient's daily alcohol use is a concern, and he was counseled on the dangers of abrupt cessation and the risks of mixing alcohol with his medication. A slow taper from alcohol is recommended. Blood work will be ordered to assess for any liver damage, including a fibrosis score. 5. Musculoskeletal Rib Pain The patient reports rib soreness, and is taking ibuprofen every 3-4 hours. Given the risks to his kidneys and stomach, he is advised to decrease ibuprofen. Celecoxib twice daily was discussed, but the patient wants to hold off on this as well. An X-ray of the ribs can be considered if the pain does not improve. History of prostate cancer. This treated but continues with some BPH with urinary symptoms. PSA has closely been monitored by Urology. This has been stable and Dr. Rashid has decreased the frequency of his visits. Discussion Notes I discussed with the patient his multiple health concerns. For his anxiety and insomnia, I explained that his clonazepam dose is high and not a first-line treatment, and we agreed to a referral to behavioral health to find the root cause. I emphasized the danger of mixing clonazepam and alcohol due to the risk of respiratory depression. I will provide a temporary Klonopin refill to be tapered. Regarding his chest pain, I explained that it is likely from severe heartburn or an ulcer, especially given his alcohol and frequent ibuprofen use. I educated him on the mechanism of acid reflux and the risk of long-term esophageal damage. I advised him to decrease ibuprofen due to the risks to his kidneys and stomach. We discussed his high blood pressure and I advised him to stop adding salt to his food. I also explained the need for blood work to check his kidney function and assess for liver fibrosis due to his chronic alcohol use. We will follow up in 7 weeks to review these results and his progress. Patient Instructions - Stop adding extra salt to your food to help with your blood pressure. - You will get a referral to see a specialist for your anxiety. - Take the clonazepam prescription only once at night as needed for sleep. - Do not mix alcohol with clonazepam; it is a very dangerous combination. - Slowly reduce your alcohol intake; do not stop drinking suddenly. - Decrease ibuprofen. - It can be bad for your kidneys and stomach. - I will also send a prescription for your heartburn (omeprazole 20mg). - Watch for any black, tarry-looking stool or red blood in your stool. - Making the bedroom dark and quiet can help with sleep; avoid watching TV in bed. - Please go for the lab work that was ordered. - Schedule a follow-up appointment in 7 weeks. Orders: Orders Complete Blood Count Auto Diff Today E78.5 - Hyperlipidemia, unspecified, R07.81 - Pleurodynia CRP High Sensitivity Today E78.5 - Hyperlipidemia, unspecified, R07.81 - Pleurodynia Vitamin D 25-OH Total Today E78.5 - Hyperlipidemia, unspecified, R07.81 - Pleurodynia UA CC w/rflx Micro + Cult Today E78.5 - Hyperlipidemia, unspecified, R07.81 - Pleurodynia TSH reflex Free T4 Today E78.5 - Hyperlipidemia, unspecified, R07.81 - Pleurodynia Liver Fibrosis Pnl Today F10.10 - Alcohol abuse, uncomplicated Comprehensive Spencer. Panel Fast Today E78.5 - Hyperlipidemia, unspecified, R07.81 - Pleurodynia Erythrocyte Sedimentation Rate Today E78.5 - Hyperlipidemia, unspecified, R07.81 - Pleurodynia Lipid Panel Today E78.5 - Hyperlipidemia, unspecified, R07.81 - Pleurodynia Medications: New omeprazole 20 mg PO DAILY 90 caps 3RF clonazepam 1 mg PO DAILY PRN 30 tabs 0RF anxiety
[2025-03-10 09:51] VITALS: BP 140/74; PULSE 87; RESP 18; TEMP 36.2; O2SAT 97; BMI 32.6
[2025-03-10 10:25] VITALS: BP 152/84
== END 2025-03-10 11:01 | disposition home or self-care (01) ==
LOC: HO.HMCH 09:32
PROVIDERS: PCP Internal Medicine
DX: F41.9 Anxiety disorder, unspecified (principal); G47.00 Insomnia, unspecified; F10.10 Alcohol abuse, uncomplicated; R12 Heartburn; N40.1 Benign prostatic hyperplasia with lower urinary tract symptoms; N13.8 Other obstructive and reflux uropathy; R07.81 Pleurodynia

== ENCOUNTER 2025-03-10 09:31 | Outpatient (REF) | payer OTHER, SELFPAY ==
[2025-03-10 11:21] LABS: MANUAL DIFF FLAG NO
[2025-03-10 12:12] LABS: Hematocrit 45.1 % (42.0-52.0); Hemoglobin 16.0 g/dl (14.0-18.0); Imm Gran Abs Auto 0.03 X10*3/uL (0.00-0.03); Imm Gran Pct Auto 0.4 % (0.0-0.4); Lymphocytes Absolute Auto 1.1 X10*3/uL (1.2-4.9); Mean Corpuscular HGB Conc 35.5 g/dl (31.0-36.0); Mean Corpuscular Hemoglobin 31.7 pg (27.0-33.0); Mean Corpuscular Volume 89.3 fL (80.0-98.0); NRBC Abs Auto 0.000 X10*3/uL (0.0-0.012); NRBC Pct Auto 0.0 /100WBC (0.0-0.2); Platelet Count 220 X10*3/uL (160-400); Red Blood Count 5.05 X10*6/uL (4.60-5.80); White Blood Count 8.1 X10*3/uL (4.8-10.8)
[2025-03-10 13:02] LABS: Erythrocyte Sedimentation Rate 6 MM/HR (0-15)
[2025-03-10 13:09] LABS: Alanine Aminotransferase 39 U/L (0-40); Albumin Level 5.0 g/dL (3.5-5.0); Alkaline Phosphatase 109 U/L (39-117); Anion Gap 13 (12-20); Aspartate Amino Transferase 36 U/L (5-37); Blood Urea Nitrogen 14 mg/dL (9-16); Calcium 9.7 mg/dL (8.4-10.2); Carbon Dioxide 28 mmol/L (22-29); Chloride 100 mmol/L (96-108); Cholesterol 113 mg/dL (<200); Estimated Glomerular Filt Rate > 60; HDL Cholesterol 46 mg/dL (>40); Potassium 4.3 mmol/L (3.3-5.1); Sodium 137 mmol/L (135-145); Total Protein 7.6 g/dL (6.5-8.0); Triglycerides 66 mg/dL (<150)
[2025-03-10 13:16] LABS: Appearance Urine Clear; Glucose Urine UA Negative (Negative); PH 5.5 (5.0-9.0); Specific Gravity - Urine 1.025 (1.005-1.025); UMIC TRIGGER UACC YES
--- OUTSIDE RECORDS SUMMARY | 2025-03-10 23:07 | XMS_ITS | Encounter Summary ---
Author Organization [facility] Address [address] [place] [id number] Phone Care Team Providers Care Truck Rental Manager Name Role Phone Ino Salazar MD Primary Care Provider [phone]- [phone] Encounter Details Date Type Department Care Team (Late st Contact Info) Description 02/05/2021 Ancillary Orders [facility],Outside Imaging [address] [place] [address] System, Provider Not In, [place] [address] Social History Tobacco Use Types Packs/Day Years [...] on filedocumented in this encounter Care Teams Truck Rental Manager Relationship Specialty Start Date End Date Ino Salazar MD [address] [place] [id number] PCP - General Internal Medicine 01/28/21 documented as of this encounter Additional Source Comments The information contained in this document represents components of the legal health record. It is not the complete legal health record.[facility]
--- OUTSIDE RECORDS SUMMARY | 2025-03-10 23:09 | XMS_ITS | Clinical Summary ---
Author Organization [facility] Address [address] [place] [address] [place] [phone] Phone Care Team Providers Care Software Engineering Analyst Name Role Phone Ino Salazar MD Primary Care Provider [phone]- [phone] Allergies No known active allergies Medications finasteride [...] on patient's age to complete this topic IPV VACCINES Aged Out No longer eligi ble based on patient's age to complete this topic MENINGOCOCCAL VACCINES (ACWY) Aged Out No longer eligible based on patient's age to complete this topic MENINGOCOCCAL VACCINES (B) Aged Out N o longer eligible based on patient's age to complete this topic Medical Devices Not on file Insurance [employer] [facility] TOTAL CHOICE INDEMNITY [employer] [facility] TOTAL CHOICE INDEMNITY [employer] [facility] TOTAL CHOICE INDEMNITY [employer] TOTAL CHOICE INDEMNITY [employer] TOTAL CHOICE INDEMNITY [employer] TOTAL CHOICE INDEMNITY [employer] [facility] TOTAL CHOICE INDEMNITY [employer] [facility] TOTAL CHOICE INDEMNITY [facility] TOTAL CHOICE INDEMNITY Care Teams Software Engineering Analyst Relationship Specialty Start Date End Date Ino Salazar MD [address] [place] [id number] PCP - General Internal Medicine 01/28/21 Additional Source Comments The information contained in this document represents components of the legal health record. It is not the complete legal health record.[facility]
[2025-03-20 12:08] LABS: FIB-ALT 28 U/L (9-46); FIB-Alpha-2-Macroglobulin 182 mg/dL (106-279); FIB-Apolipoprotein A1 151 mg/dL (94-176); FIB-GGT 11 U/L (3-70); FIB-Haptoglobin 141 mg/dL (43-212); FIB-Total Bilirubin 0.8 mg/dL (0.2-1.2); Liver Fibrosis Score 0.23; Liver Fibrosis Stage F0-F1; Nec Inflam Act Grade A0; Nec Inflam Act Score 0.12
== END 2025-03-10 09:32 | disposition home or self-care (01) ==
LOC: HO.LAB 09:31
PROVIDERS: PCP Internal Medicine
DX: R07.81 Pleurodynia (principal); E78.5 Hyperlipidemia, unspecified; F10.10 Alcohol abuse, uncomplicated; F41.9 Anxiety disorder, unspecified; G47.00 Insomnia, unspecified; R12 Heartburn; N40.1 Benign prostatic hyperplasia with lower urinary tract symptoms; N13.8 Other obstructive and reflux uropathy; Z79.899 Other long term (current) drug therapy
CPT/HCPCS: 36415; 80053; 80061; 81001; 81003; 81596; 82306; 84443; 85025; 85652; 86141; 96127